=== PATIENT | female | born 1970 | race Two or more races ===

== ENCOUNTER 2020-01-16 09:28 | Outpatient (REF) | payer OTHER, SELFPAY | END 2020-01-16 09:29 | disposition home or self-care (01) | LOC: HO.LAB 09:28 | PROVIDERS: PCP Internal Medicine; Visit Provider Internal Medicine | DX: Z20.828 Contact with and (suspected) exposure to other viral communicable diseases (principal) | CPT/HCPCS: 36415; 87635 ==

== ENCOUNTER 2020-01-26 12:53 | Outpatient (REF) | payer OTHER, SELFPAY | END 2020-01-26 12:54 | disposition home or self-care (01) | LOC: HO.LAB 12:53 | PROVIDERS: PCP Internal Medicine; Visit Provider Internal Medicine | DX: Z20.828 Contact with and (suspected) exposure to other viral communicable diseases (principal) | CPT/HCPCS: 87635 ==

== ENCOUNTER → 2020-02-29 08:34 | Outpatient (BNVA) | payer OTHER, SELFPAY | PROVIDERS: PCP Internal Medicine; Referring Provider Internal Medicine; Visit Provider Physician Assistant | DX: Z76.89 Persons encountering health services in other specified circumstances (principal) ==

== ENCOUNTER 2020-03-07 12:31 | Outpatient (REF) | payer OTHER, SELFPAY ==
[2020-03-07 13:37] LABS: MANUAL DIFF FLAG NO
[2020-03-07 13:48] LABS: Eosinophils Absolute Auto 0.1 X10*3/uL (0.0-0.4); Eosinophils Percent Auto 2.3 % (0-4); Hematocrit 45.1 % (37-47); Hemoglobin 14.8 g/dl (12.0-16.0); Imm Gran Abs Auto 0.01 X10*3/uL (0.00-0.03); Imm Gran Pct Auto 0.3 % (0.0-0.4); Lymphocytes Absolute Auto 1.5 X10*3/uL (1.2-4.9); Lymphocytes Percent Auto 38.3 % (20-40); Mean Corpuscular HGB Conc 32.8 g/dl (31.0-35.0); Mean Corpuscular Hemoglobin 30.3 pg (27.0-33.0); Mean Corpuscular Volume 92.4 fL (80-98); Mean Platelet Volume 10.1 fL (9.4-12.3); Monocytes Absolute Auto 0.3 X10*3/uL (0.1-1.2); Monocytes Percent Auto 6.8 % (2-11); Neutrophils Absolute Auto 2.1 X10*3/uL (2.0-8.3); Neutrophils Percent Auto 51.3 % (45-73); Platelet Count 275 X10*3/uL (160-400); Red Blood Count 4.88 X10*6/uL (4.20-5.50); Red Cell Distribution Width 12.5 % (11.0-16.0)
[2020-03-07 14:44] LABS: Thyroid Stimulating Hormone 0.47 uIU/mL (0.32-4.0)
== END 2020-03-07 12:32 | disposition home or self-care (01) ==
LOC: HO.LAB 12:31
PROVIDERS: PCP Internal Medicine; Visit Provider Physician Assistant
DX: K59.09 Other constipation (principal)
CPT/HCPCS: 36415; 84443; 85025

== ENCOUNTER 2020-03-15 13:46 | Outpatient (REF) | payer OTHER, SELFPAY ==
--- NOTE | 2020-03-15 14:03 | XR_ITS ---
EXAMINATION: XR FOOT, RIGHT CLINICAL INFORMATION: Foot pain and heel spur. COMPARISON: None TECHNIQUE: AP, lateral, and oblique views of the right foot. FINDINGS: The bones and soft tissues are normal. No fracture. Alignment is anatomic. Joint spaces are maintained. XR/XR foot RT 2V IMPRESSION: Unremarkable right foot exam.
[2020-03-15 14:40] LABS: Glucose Urine UA NEG (NEG); Leukocyte Esterase Urine NEG (NEG); Nitrite Urine NEG (NEG); PH 6.5 (5.0-8.0); Specific Gravity - Urine 1.015 (1.005-1.025); Urine Blood NEG (NEG); Urine Ketones NEG (NEG); Urine Protein NEG (NEG-TRACE)
[2020-03-15 14:42] LABS: Appearance Urine CLEAR; Color Urine YELLOW
[2020-03-15 15:06] LABS: Alanine Aminotransferase 13 U/L (0-31); Albumin Level 4.7 g/dL (3.5-5.0); Alkaline Phosphatase 71 U/L (39-117); Anion Gap 11 (12-20); Aspartate Amino Transferase 17 U/L (5-31); Bilirubin Total 0.5 mg/dL (0.0-1.0); Blood Urea Nitrogen 13 mg/dL (9-16); C Reactive Protein 0.05 mg/dL (< or = 0.50); Calcium 9.4 mg/dL (8.4-10.2); Carbon Dioxide 31 mmol/L (22-29); Chloride 102 mmol/L (96-108); Cholesterol 240 mg/dL; Estimated Glomerular Filt Rate > 60; Glucose Fasting 91 mg/dL (60-99); HDL Cholesterol 53 mg/dL; LDL Cholesterol Calculated 174 mg/dl; Potassium 4.5 mmol/l (3.3-5.1); Sodium 139 mmol/L (135-145); Total Protein 7.5 g/dL (6.5-8.0); Triglycerides 67 mg/dL
[2020-03-15 15:27] LABS: Free T4 (Free Thyroxine) 0.92 ng/dL (0.71-1.85)
== END 2020-03-15 13:47 | disposition home or self-care (01) ==
LOC: HO.LAB 13:46
PROVIDERS: PCP Internal Medicine; Visit Provider Internal Medicine
DX: M79.671 Pain in right foot (principal); R63.5 Abnormal weight gain; R23.9 Unspecified skin changes; E78.00 Pure hypercholesterolemia, unspecified
CPT/HCPCS: 73620; 80053; 80061; 81003; 84439; 86140

== ENCOUNTER → 2020-03-21 08:34 | Outpatient (BNVA) | payer OTHER, SELFPAY | PROVIDERS: PCP Internal Medicine; Visit Provider Physician Assistant | DX: Z76.89 Persons encountering health services in other specified circumstances (principal) ==

== ENCOUNTER 2020-05-11 10:06 | Emergency (ER) | payer OTHER, SELFPAY ==
[2020-05-11 11:08] VITALS: BP 136/96; PULSE 73; RESP 20; TEMP 36.7; O2SAT 98; BMI 21.5
--- NOTE | 2020-05-11 11:09 | XR_ITS ---
EXAMINATION: XR CHEST CLINICAL INFORMATION: Cough COMPARISON: September 2019 TECHNIQUE: Frontal view of the chest was obtained. FINDINGS: No significant abnormality is noted involving the heart, lungs, mediastinum, bony thorax or soft tissues. XR/XR chest 1V IMPRESSION: Unremarkable examination.
--- NOTE | 2020-05-11 11:09 | ED.URI ---
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 elicited complaint: cough, sore throat, rhinorrhea and nasal congestion Pertinent past history: COPD Onset (ago): day(s) (4) Consistency: constant Severity: mild Description of mucous: clear Able to tolerate fluids by mouth: Yes Exacerbating factors: swallowing Relieving factors: nothing Context: sick contacts (COVID exposure) Associated symptoms: chills, myalgias, headache, nasal congestion, sore throat and cough Treatments prior to arrival: none Related Data Home Medications Medication Instructions Recorded Confirmed cholecalciferol (vitamin D3) 50 50 mcg PO DAILY 02/29/20 03/21/20 mcg (2,000 unit) capsule omeprazole 20 mg capsule,delayed 20 mg PO DAILY 02/29/20 03/21/20 release pyridoxine (vitamin B6) 50 mg 50 mg PO BID 03/21/20 03/21/20 capsule Previous Rx's Medication Instructions Recorded docusate sodium 100 mg capsule 200 mg PO BEDTIME #60 cap 02/29/20 methylcellulose (laxative) 500 mg 500 mg PO BID #60 tab 02/29/20 tablet polyethylene glycol 3350 17 17 g PO DAILY #510 g 02/29/20 gram/dose oral powder hydrocodone-homatropine 5 ml PO Q6H PRN #60 ml 05/11/20 prednisone 40 mg PO DAILY 4 Days #8 tab 05/11/20 Allergies Allergy/AdvReac Type Severity Reaction Status Date / Time atorvastatin Allergy Unknown bruises,weakness, Verified 05/11/20 11:15 headaches Review of Systems Review of Systems: Constitutional : No Fever, pos Chills ENT/Mouth : pos sore throat, pos Rhinorrhea, No Swallowing Difficulty Eyes: No Eye Pain, No Swelling, No Redness Cardiovascular : No Chest Pain, positive SOB, No Orthopnea, positive Edema Respiratory : pos Cough, No Sputum, No Wheezing, positive dyspnea Gastrointestinal : No Nausea, No Vomiting, No Diarrhea, No abdominal Pain, No Hematochezia, No Melena Genitourinary : No Dysuria, No Urinary Frequency, No Hematuria Musculoskeletal : No joint pain, pos Myalgias Skin : No Skin Lesions, No rash Neuro : No Weakness, No Numbness, No Dizziness, pos Headache All other systems reviewed and are negative [facility] Past Medical History Attestation statement: The following information was validated with the patient. Medical History Asthma Chronic constipation COPD (chronic obstructive pulmonary disease) Hiatal hernia Mitral valve prolapse Surgical History History of appendectomy History of colonoscopy History of hysterectomy Hx of endoscopy Hx of tonsillectomy Family History Family History (Updated 02/29/20 @ 09:10 by Adela Garcia PA-C) Father No problems noted. Mother Family history of diabetes mellitus History of cancer Multiple myeloma Social History Social History Alcohol intake: never Smoking Status: Former smoker Advance Directives: No Advance Directives Information Provided: No Physical Exam Vital Signs: Vital Signs: Last Vital Signs Temp 98.1 F 05/11/20 11:08 Pulse 73 05/11/20 11:43 Resp 20 05/11/20 11:08 BP 136/96 H 05/11/20 11:08 Pulse Ox 98 05/11/20 11:08 Body Mass Index 21.5 Appearance: Alert. Oriented X3. No acute distress. Eyes: Pupils equal, round and reactive to light. ENT: Pharynx normal. Neck: Normal inspection. Neck supple. CVS: Normal heart rate and rhythm. Pulses normal. Respiratory: No respiratory distress. Breath sounds decreased, faint end exp wheezes Abdomen: Soft and nontender. Skin: Skin warm and dry. Normal skin color. Normal skin turgor. Extremities: No lower extremity edema. No calf ttp Neuro: Oriented X 3. No motor deficit. No sensory deficit. Course Course Course Narrative: patient feels better, stable for DC, CXR negative COVID negative MDM - URI/Sore Throat MDM Narrative Medical decision making narrative: 50 yo female with COPD here with 4 days of URI symptoms and her chest feels tight like COPD - had COVID exposure, pain is not severe or pleuritic, no hypoxia - doubt ACS/PE suspect viral illness triggering mild COPD - neb ordered, PO prednisone, CXR and COVID swab dispo per results and improvement Lab Data Labs: Lab Results 05/11/20 Range/Units 11:35 Coronavirus (PCR) NEGATIVE (Negative) Influenza Type A (PCR) NEGATIVE (Negative) Influenza Type B (PCR) NEGATIVE (Negative) RSV RNA Qual (PCR) NEGATIVE (Negative) Discharge Plan Discharge Clinical Impression: Viral infection Patient Disposition: Home, Self-Care Instructions: Viral Syndrome (ED) Additional Instructions: return to ED for any worsening symptoms or concerns your chest xray and COVID swab were negative but your symptoms are concerning, will start on prednisone and put you out of work for 1 week, return for any change in your symptoms or concerns Prescriptions: New prednisone 20 mg tablet 40 mg PO DAILY 4 Days Qty: 8 RF: 0 hydrocodone-homatropine 5-1.5 mg/5 mL (5 mL) syrup 5 ml PO Q6H PRN (Reason: cough) Qty: 60 RF: 0 No Action cholecalciferol (vitamin D3) 50 mcg (2,000 unit) capsule 50 mcg PO DAILY RF: 0 omeprazole 20 mg capsule,delayed release(DR/EC) 20 mg PO DAILY RF: 0 docusate sodium [Colace] 100 mg capsule 200 mg PO BEDTIME Qty: 60 RF: 5 polyethylene glycol 3350 [Miralax] 17 gram/dose powder 17 g PO DAILY Qty: 510 RF: 0 Citrucel 500 mg tablet 500 mg PO BID Qty: 60 RF: 5 pyridoxine (vitamin B6) 50 mg capsule 50 mg PO BID RF: 0 Referrals: Raj Bethea MD [Primary Care Provider] - 3 days (if not better) Stand Alone Forms: Work/School Release
[2020-05-11] MEDS: predniSONE 20 MG TABLET 60 MG PO (11:28)
[2020-05-11] MEDS: Albuterol Sulfate (0.083%) 2.5 MG/3 ML VIAL.NEB 5 MG INHALE (11:38)
[2020-05-11 11:43] VITALS: PULSE 73; O2SAT 98
[2020-05-11 12:17] LABS: Influenza A PCR NEGATIVE (Negative); Influenza B PCR NEGATIVE (Negative); Resp Syncy Virus RNA Qual PCR NEGATIVE (Negative); SARS COV2 PCR INHOUSE NEGATIVE (Negative)
== END 2020-05-11 13:28 | disposition home or self-care (01) ==
PROVIDERS: Emergency Provider Emergency Medicine; PCP Internal Medicine
DX: B34.9 Viral infection, unspecified (principal); R05 Cough; M79.10 Myalgia, unspecified site; Z87.891 Personal history of nicotine dependence; Z20.822 Contact with and (suspected) exposure to COVID-19
CPT/HCPCS: 0241U; 36415; 71045; 94640; 99283

== ENCOUNTER 2020-05-21 13:57 | Outpatient (REF) | payer OTHER, SELFPAY | END 2020-05-21 13:58 | disposition home or self-care (01) | LOC: HO.LAB 13:57 | PROVIDERS: Visit Provider Internal Medicine | DX: Z20.822 Contact with and (suspected) exposure to COVID-19 (principal) | CPT/HCPCS: 36415; C9803; U0003; U0005 ==

== ENCOUNTER → 2020-06-20 10:08 | Outpatient (BNVA) | payer OTHER, SELFPAY | PROVIDERS: Visit Provider Physician Assistant ==

== ENCOUNTER → 2020-06-29 08:44 | Outpatient (BNVA) | payer OTHER, SELFPAY | PROVIDERS: PCP Internal Medicine; Visit Provider Internal Medicine Pulmonary Disease | DX: J45.40 Moderate persistent asthma, uncomplicated (principal); J34.2 Deviated nasal septum; Z87.891 Personal history of nicotine dependence | CPT/HCPCS: 99212 ==

== ENCOUNTER 2020-07-02 09:42 | Outpatient (REF) | payer OTHER, SELFPAY ==
--- NOTE | ~2020-07-02 | MM_ITS ---
EXAMINATION: MM SCREENING DIGITAL BREAST TOMOSYNTHESIS, BILATERAL CLINICAL INFORMATION: Screening. Asymptomatic. The lifetime risk of breast cancer based on the Tyrer-Cuzick Model is 9%. COMPARISON: Mammography: 06/27/2019, 06/11/2018, 04/28/2017 TECHNIQUE: Digital breast tomosynthesis is performed in both the craniocaudal and mediolateral oblique views along with computer-aided detection (CAD). Synthesized 2D images are generated from the tomosynthesis. FINDINGS: There are scattered areas of fibroglandular density (ACR BI-RADS breast composition Category b). Breast tissue composition borders on heterogeneously dense, decreased in density since 2018. There are no significant masses, abnormal calcifications, or other abnormalities. The axilla and skin contours are unremarkable. MM/MM tomosynthesis screening BI IMPRESSION: No mammographic evidence of malignancy. ASSESSMENT: BI-RADS 1: Negative RECOMMENDATION: Routine annual mammography screening. This patient's information was entered into a reminder system with a target due date for their next mammogram.
== END 2020-07-02 09:43 | disposition home or self-care (01) ==
LOC: HO.MAMMO 09:42
PROVIDERS: Visit Provider Internal Medicine
DX: Z12.31 Encounter for screening mammogram for malignant neoplasm of breast (principal)
CPT/HCPCS: 77063; 77067

== ENCOUNTER 2020-07-09 14:17 | Outpatient (REF) | payer OTHER, SELFPAY | END 2020-07-09 14:18 | disposition home or self-care (01) | LOC: HO.LAB 14:17 | PROVIDERS: Visit Provider Internal Medicine | DX: Z20.822 Contact with and (suspected) exposure to COVID-19 (principal) | CPT/HCPCS: 36415; C9803; U0003; U0005 ==

== ENCOUNTER 2020-07-12 09:33 | Outpatient (REF) | payer OTHER, SELFPAY ==
[2020-07-12 11:25] LABS: Cholesterol 263 mg/dL; HDL Cholesterol 54 mg/dL; LDL Cholesterol Calculated 191 mg/dl; Triglycerides 92 mg/dL
== END 2020-07-12 09:34 | disposition home or self-care (01) ==
LOC: HO.LAB 09:33
PROVIDERS: PCP Internal Medicine; Visit Provider Internal Medicine
DX: E78.00 Pure hypercholesterolemia, unspecified (principal)
CPT/HCPCS: 36415; 80061

== ENCOUNTER 2020-08-12 09:27 | Emergency (ER) | payer OTHER, SELFPAY ==
--- NOTE | ~2020-08-12 | XR_ITS ---
EXAMINATION: XR HAND, LEFT CLINICAL INFORMATION: Injury COMPARISON: None TECHNIQUE: PA, lateral, and oblique views of the left hand. FINDINGS: The bones and soft tissues are normal. No fracture. Alignment is anatomic. Joint spaces are maintained. No erosions or soft tissue calcifications. XR/XR hand LT 2V IMPRESSION: Normal left hand.
[2020-08-12 09:44] VITALS: BP 110/82; PULSE 80; RESP 18; TEMP 37; O2SAT 96; BMI 23.8
--- NOTE | 2020-08-12 11:41 | ED_ITS ---
HPI - Fall General Chief Complaint: Fall Stated Complaint: fall - hand pain Time Seen by Provider: 08/12/20 10:09 History of Present Illness HPI Narrative: Patient complains of pain in the left hand left 3rd 4th and 5th fingers after she tripped and fell forward on the outstretched hand and bent the fingers back but did not bend or injure her wrist, no other injury no numbness weakness or tingling Related Data Home Medications Medication Instructions Recorded Confirmed cholecalciferol (vitamin D3) 50 50 mcg PO DAILY 02/29/20 06/20/20 mcg (2,000 unit) capsule omeprazole 20 mg capsule,delayed 20 mg PO DAILY 02/29/20 06/20/20 release pyridoxine (vitamin B6) 50 mg 50 mg PO BID 03/21/20 06/20/20 capsule albuterol sulfate 90 mcg/actuation 1 inh INHALATION ONCE PRN g 06/20/20 06/20/20 aerosol inhaler Previous Rx's Medication Instructions Recorded docusate sodium 100 mg capsule 200 mg PO BEDTIME #60 cap 02/29/20 methylcellulose (laxative) 500 mg 500 mg PO BID #60 tab 02/29/20 tablet polyethylene glycol 3350 17 17 g PO DAILY #510 g 02/29/20 gram/dose oral powder hydrocodone-homatropine 5 ml PO Q6H PRN #60 ml 05/11/20 prednisone 40 mg PO DAILY 4 Days #8 tab 05/11/20 sennosides 8.6 mg tablet 8.6 mg PO DAILY #30 tab 06/20/20 umeclidinium 62.5 mcg/actuation 1 inh INHALATION DAILY 30 Days #1 06/29/20 blister powder for inhalation ea ibuprofen 600 mg PO Q6H PRN #20 tab 08/12/20 Allergies Allergy/AdvReac Type Severity Reaction Status Date / Time No Known Allergies Allergy Verified 06/29/20 08:49 Review of Systems Review of Systems: Positive for left 3rd 4th and 5th finger pain after fall Negatives are no headache no head injury no neck pain no back pain no numbness weakness or tingling Yes all other systems are reviewed and are negative PMF Past Medical History Source: nursing notes reviewed Medical History Asthma Chronic constipation COPD (chronic obstructive pulmonary disease) Hiatal hernia Mitral valve prolapse Surgical History History of appendectomy History of colonoscopy History of hysterectomy Hx of endoscopy Hx of tonsillectomy Family History Family History (Updated 06/20/20 @ 10:13 by Sally Neff CMA) Father No problems noted. 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 Physical Exam Vital Signs: Vital Signs: Last Vital Signs Temp 98.6 F 08/12/20 09:44 Pulse 80 08/12/20 09:44 Resp 18 08/12/20 09:44 BP 110/82 08/12/20 09:44 Pulse Ox 96 08/12/20 09:44 Body Mass Index 23.8 General appearance no distress Head is normocephalic atraumatic Neck is supple nontender Respiratory no distress Extremities the left hand had tenderness and mild swelling in the left ring finger some mild tenderness in the left 3rd and left 5th fingers, the patient could flex the fingers but it was uncomfortable and could extend them fully, neurovascular intact distal, wrist was nontender and had full range of motion without pain Skin no rashes no lacerations Neuro no focal motor or sensory deficits Course Course Course Narrative: Left hand and finger x-ray was negative, patient was given a finger splint for the left 4th finger and will follow with hand doctor if needed Discharge Plan Discharge Clinical Impression: Finger sprain Qualifiers: Encounter type: initial encounter Patient Disposition: Home, Self-Care Additional Instructions: X-ray was normal You most likely sprained the pinky ring finger and middle finger This usually is self-limited and gets better on its own after 1-2 weeks If needed follow with hand doctor Return any concerns Prescriptions: New ibuprofen 600 mg tablet 600 mg PO Q6H PRN (Reason: pain) Qty: 20 RF: 0 No Action prednisone 20 mg tablet 40 mg PO DAILY 4 Days Qty: 8 RF: 0 hydrocodone-homatropine 5-1.5 mg/5 mL (5 mL) syrup 5 ml PO Q6H PRN (Reason: cough) Qty: 60 RF: 0 albuterol sulfate 90 mcg/actuation HFA aerosol inhaler 1 inh inhalation ONCE PRN (Reason: shortness of breath or wheezing) RF: 0 sennosides [Senna Laxative] 8.6 mg tablet 8.6 mg PO DAILY Qty: 30 RF: 3 Incruse Ellipta 62.5 mcg/actuation blister with device 1 inh inhalation DAILY 30 Days Qty: 1 RF: 6 cholecalciferol (vitamin D3) 50 mcg (2,000 unit) capsule 50 mcg PO DAILY RF: 0 omeprazole 20 mg capsule,delayed release(DR/EC) 20 mg PO DAILY RF: 0 docusate sodium [Colace] 100 mg capsule 200 mg PO BEDTIME Qty: 60 RF: 5 polyethylene glycol 3350 [Miralax] 17 gram/dose powder 17 g PO DAILY Qty: 510 RF: 0 Citrucel 500 mg tablet 500 mg PO BID Qty: 60 RF: 5 pyridoxine (vitamin B6) 50 mg capsule 50 mg PO BID RF: 0 Referrals: Brayden Hutchinson MD [Physician] - 2 days (Left 3 4 in 5 finger sprains) Stand Alone Forms: Work/School Release
== END 2020-08-12 11:51 | disposition home or self-care (01) ==
PROVIDERS: Emergency Provider Emergency Medicine; PCP Internal Medicine
DX: S63.615A Unspecified sprain of left ring finger, initial encounter (principal); S63.613A Unspecified sprain of left middle finger, initial encounter; S63.617A Unspecified sprain of left little finger, initial encounter; W01.0XXA Fall on same level from slipping, tripping and stumbling without subsequent striking against object, initial encounter; Y93.9 Activity, unspecified; Y92.9 Unspecified place or not applicable; Y99.9 Unspecified external cause status
CPT/HCPCS: 29130; 73120; 99283

== ENCOUNTER 2020-08-15 08:15 | Outpatient (REF) | payer OTHER, SELFPAY ==
--- NOTE | ~2020-08-15 | XR_ITS ---
EXAMINATION: XR HAND, LEFT XR WRIST, LEFT CLINICAL INFORMATION: Pain. COMPARISON: 3 views left hand and 2 views left wrist, TECHNIQUE: PA, lateral, and oblique views of the left hand. FINDINGS: LEFT HAND: The PIP, DIP and MCP joints are maintained normal. No bony erosive changes, fracture or dislocation. The soft tissues are normal. LEFT WRIST: The intercarpal and radiocarpal and carpometacarpal joint space is maintained normal. No bony erosive changes or fracture seen. There are no loose bodies. The soft tissues are normal. XR/XR hand LT min 3V IMPRESSION: Unremarkable left hand and left wrist exam.
--- NOTE | ~2020-08-15 | XR_ITS ---
EXAMINATION: XR HAND, LEFT XR WRIST, LEFT CLINICAL INFORMATION: Pain. COMPARISON: 3 views left hand and 2 views left wrist, TECHNIQUE: PA, lateral, and oblique views of the left hand. FINDINGS: LEFT HAND: The PIP, DIP and MCP joints are maintained normal. No bony erosive changes, fracture or dislocation. The soft tissues are normal. LEFT WRIST: The intercarpal and radiocarpal and carpometacarpal joint space is maintained normal. No bony erosive changes or fracture seen. There are no loose bodies. The soft tissues are normal. XR/XR hand LT min 3V IMPRESSION: Unremarkable left hand and left wrist exam.
== END 2020-08-15 08:16 | disposition home or self-care (01) ==
LOC: HO.HOSX 08:15
PROVIDERS: PCP Internal Medicine; Visit Provider Orthopaedic Surgery
DX: S63.613A Unspecified sprain of left middle finger, initial encounter (principal); S63.615A Unspecified sprain of left ring finger, initial encounter; S63.617A Unspecified sprain of left little finger, initial encounter; W01.0XXA Fall on same level from slipping, tripping and stumbling without subsequent striking against object, initial encounter; Y93.9 Activity, unspecified; Y92.9 Unspecified place or not applicable; Y99.9 Unspecified external cause status; Z87.891 Personal history of nicotine dependence
CPT/HCPCS: 73130; 99202

== ENCOUNTER → 2020-08-20 10:23 | Outpatient (BNVA) | payer OTHER, SELFPAY | PROVIDERS: PCP Internal Medicine; Visit Provider Physician Assistant | DX: K59.09 Other constipation (principal); Z79.899 Other long term (current) drug therapy | CPT/HCPCS: 99212 ==

== ENCOUNTER → 2020-09-26 09:26 | Outpatient (BNVA) | payer OTHER, SELFPAY | PROVIDERS: PCP Internal Medicine; Visit Provider Dietitian, Registered | DX: E78.00 Pure hypercholesterolemia, unspecified (principal); K59.09 Other constipation | CPT/HCPCS: 97802 ==

== ENCOUNTER 2020-10-09 15:08 | Outpatient (REF) | payer OTHER, SELFPAY ==
--- NOTE | ~2020-10-09 | US_ITS ---
EXAMINATION: US RETROPERITONEAL LIMITED (RENAL ONLY) CLINICAL INFORMATION: Renal calculus. COMPARISON: Ultrasound renal ultrasound 08/15/2019 and 01/17/2019. CT abdomen pelvis 04/30/2017. TECHNIQUE: Real-time imaging of the kidneys. FINDINGS: RIGHT KIDNEY: 11.3 x 3.5 x 5.2 cm (SAG x AP x TRV). The kidney is normal in size, contour, and echogenicity. Renal cortical thickness is normal. No calculi or focal parenchymal lesions. No hydronephrosis. LEFT KIDNEY: 10.3 x 4.4 x 4.6 cm (SAG x AP x TRV). The kidney is normal in size, contour, and echogenicity. Renal cortical thickness is normal. There are 2 small 2 mm stones in the lower pole. No focal parenchymal lesions or hydronephrosis. US/US renal BI IMPRESSION: Small left renal stones.
== END 2020-10-09 15:09 | disposition home or self-care (01) ==
LOC: HO.US 15:08
PROVIDERS: Visit Provider Urology
DX: N20.0 Calculus of kidney (principal)
CPT/HCPCS: 76775

== ENCOUNTER 2020-11-27 08:43 | Outpatient (REF) | payer OTHER, SELFPAY | END 2020-11-27 08:44 | disposition home or self-care (01) | LOC: HO.LAB 08:43 | PROVIDERS: PCP Internal Medicine; Visit Provider Internal Medicine | DX: Z20.822 Contact with and (suspected) exposure to COVID-19 (principal) | CPT/HCPCS: C9803; U0003; U0005 ==

== ENCOUNTER 2020-12-18 07:56 | Outpatient (REF) | payer OTHER, SELFPAY | END 2020-12-18 07:57 | disposition home or self-care (01) | LOC: HO.LAB 07:56 | PROVIDERS: PCP Internal Medicine; Visit Provider Internal Medicine | DX: Z20.822 Contact with and (suspected) exposure to COVID-19 (principal) | CPT/HCPCS: C9803; U0003; U0005 ==

== ENCOUNTER → 2020-12-20 15:09 | Outpatient (BNVA) | payer OTHER, SELFPAY | PROVIDERS: Visit Provider Urology ==

== ENCOUNTER 2021-01-11 11:15 | Outpatient (REF) | payer OTHER, SELFPAY | END 2021-01-11 11:16 | disposition home or self-care (01) | LOC: HO.LAB 11:15 | PROVIDERS: PCP Internal Medicine; Visit Provider Internal Medicine | DX: Z20.822 Contact with and (suspected) exposure to COVID-19 (principal) | CPT/HCPCS: C9803; U0003; U0005 ==

== ENCOUNTER 2021-03-08 13:24 | Emergency (ER) | payer OTHER, SELFPAY ==
[2021-03-08 14:43] VITALS: BP 118/81; PULSE 70; RESP 18; TEMP 37.1; O2SAT 99; BMI 22.9
--- NOTE | 2021-03-08 17:04 | ED.HA ---
HPI - Headache General Chief Complaint: Headache Stated Complaint: headache Time Seen by Provider: 03/08/21 16:32 Source: patient and spanish medical interpreter Mode of arrival: ambulatory Limitations: language barrier History of Present Illness HPI Narrative: 50-year-old female here with 5 days of frontal sinus pain, pressure, nasal congestion with yellow color. No fevers, chills, sore throat. She has had a slight cough. No shortness of breath or chest pain Related Data Home Medications Medication Instructions Recorded Confirmed cholecalciferol (vitamin D3) 50 50 mcg PO DAILY 02/29/20 08/20/20 mcg (2,000 unit) capsule pyridoxine (vitamin B6) 50 mg 50 mg PO BID 03/21/20 08/20/20 capsule albuterol sulfate 90 mcg/actuation 1 inh INHALATION ONCE PRN g 06/20/20 08/20/20 aerosol inhaler ergocalciferol (vitamin D2) 1,250 PO 12/20/20 mcg (50,000 unit) capsule (Vitamin D2) Previous Rx's Medication Instructions Recorded docusate sodium 100 mg capsule 200 mg PO BEDTIME #60 cap 02/29/20 (Colace) methylcellulose (laxative) 500 mg 500 mg PO BID #60 tab 02/29/20 tablet (Citrucel) hydrocodone-homatropine 5 mg-1.5 5 ml PO Q6H PRN #60 ml 05/11/20 mg/5 mL (5 mL) oral syrup prednisone 20 mg tablet 40 mg PO DAILY 4 Days #8 tab 05/11/20 umeclidinium 62.5 mcg/actuation 1 inh INHALATION DAILY 30 Days #1 06/29/20 blister powder for inhalation ea (Incruse Ellipta) ibuprofen 600 mg tablet 600 mg PO Q6H PRN #20 tab 08/12/20 polyethylene glycol 3350 17 17 g PO DAILY #510 g 08/20/20 gram/dose oral powder (Miralax) pyridoxine (vitamin B6) 100 mg 100 mg PO DAILY 90 Days #90 tab 12/20/20 tablet omeprazole 20 mg capsule,delayed 20 mg PO DAILY 30 Days #30 cap 01/31/21 release sennosides 8.6 mg tablet (senna) 8.6 mg PO DAILY #30 tab 01/31/21 amoxicillin 875 mg-potassium 1 tab PO BID #14 tab 03/08/21 clavulanate 125 mg tablet (Augmentin) prednisone 20 mg tablet 40 mg PO DAILY #10 tab 03/08/21 Allergies Allergy/AdvReac Type Severity Reaction Status Date / Time No Known Allergies Allergy Verified 03/08/21 14:42 Review of Systems Review of Systems: Yes all other systems are reviewed and are negative Constitutional: Constitutional: Reports no additional constitutional complaints, Denies body ache(s), Denies chills, Denies fever(s), Reports headache(s) and Denies weakness Eyes: Eyes: Reports no additional eye complaints and Denies change in vision ENT: Reports system reviewed and no additional complaints, except as documented, Denies dizziness, Reports headache(s), Reports nasal congestion, Denies nasal discharge, Denies neck pain, Reports sinus pain and Reports sinus pressure Cardiovascular: Cardiovascular: Reports no additional cardiovascular complaints, Denies chest pain, Denies leg edema and Denies dyspnea Respiratory: Respiratory: Reports no additional respiratory complaints, Denies cough and Denies dyspnea Gastrointestinal: Gastrointestinal: Reports no additional gastrointestinal complaints, Denies abdominal pain, Denies diarrhea, Denies nausea and Denies vomiting Genitourinary: Genitourinary: Reports no additional female genitourinary complaints and Denies urinary incontinence Musculoskeletal: Musculoskeletal: Reports no additional musculoskeletal complaints, Denies back pain, Denies arthralgias, Denies joint swelling, Denies neck pain, Denies numbness and Denies tingling Integumentary/Breasts: Skin/Breast: Reports system reviewed and no additional complaints, except as docu and Denies rash Neurologic: Reports system reviewed and no additional complaints, except as documented, Denies Abnormal speech present, Denies dizziness, Reports headache(s), Denies numbness, Denies tingling and Denies weakness [facility] Past Medical History Attestation statement: The following information was validated with the patient. Source: old records reviewed and nursing notes reviewed Medical History Asthma Chronic constipation COPD (chronic obstructive pulmonary disease) Hiatal hernia High cholesterol Mitral valve prolapse Surgical History History of appendectomy History of colonoscopy History of hysterectomy Hx of endoscopy Hx of tonsillectomy Family History Family History Father No problems noted. 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 Physical Exam Vital Signs: Vital Signs: Last Vital Signs Temp 96.8 F 03/08/21 17:07 Pulse 75 03/08/21 17:07 Resp 16 03/08/21 17:07 BP 130/81 03/08/21 17:07 Pulse Ox 99 03/08/21 17:07 Body Mass Index 22.9 Const: General: cooperative, healthy appearing, comfortable and no acute distress Orientation/consciousness: patient oriented x3 Limitations: no limitations HENMT: Head: Yes normal to inspection Ears: hearing grossly normal bilaterally and TM's normal bilaterally General nose exam: Normal external nose present Face and sinus: Yes normal facial exam, Yes sinus tenderness and Yes other ( bilateral nasal turbinate erythema) Mouth: Normal oral and palatal mucosa present Throat: Yes posterior oropharynx normal Eyes: General: appearance normal, both eyes and all related structures Pupils: Equal, round and reactive pupils present Neck: Neck: Yes normal visual inspection, Yes full ROM, Yes no lymphadenopathy and Yes no meningeal signs Chest: Chest palpation & inspection: normal inspection of the chest Resp: Effort & Inspection: normal respiratory effort Auscultation: clear to auscultation bilaterally Cardio: Rate: regular rate Rhythm: regular rhythm Peripheral pulses: Peripheral pulses 2+ throughout GI: Inspection: Yes normal to inspection Palpation (GI): Soft to palpation and nontender Auscultation: normal bowel sounds Back/Spine/Pelvis: Thoracic/Lumbar Spine: thoracic and lumbar spine normal to inspection Skin: General skin exam: no rashes or lesions noted Neuro: General: patient oriented x3, no meningeal signs, no focal motor deficits and normal sensation to monofilament Cranial nerves: Yes Equal, round and reactive pupils present Cognition (Neuro): normal cognition Speech: No Abnormal speech present Gait exam (Neuro): Normal gait present Motor exam (neuro): 5/5 motor strength present throughout Extrem: General: Yes normal to inspection Course Course Course Narrative: 50-year-old female here with sinus pressure, sinus pain, frontal headache. Exam is consistent with sinusitis. Will treat with course of antibiotics and prednisone. Reviewed worrisome signs and symptoms of when to return to the emergency department. Comfortable with discharge home. MDM - Headache Differential Diagnosis Differential diagnosis: Likely migraine, tension headache and sinusitis Medical Records Attestation: I reviewed the patient's medical records. Lab Data Attestation: I reviewed the patient's lab results. Discharge Plan Discharge Clinical Impression: Sinusitis Patient Disposition: Home, Self-Care Instructions: Sinusitis (ED) Prescriptions: New amoxicillin-pot clavulanate [Augmentin] 875-125 mg tablet 1 tab PO BID Qty: 14 RF: 0 prednisone 20 mg tablet 40 mg PO DAILY Qty: 10 RF: 0 No Action omeprazole 20 mg capsule,delayed release(DR/EC) 20 mg PO DAILY 30 Days Qty: 30 RF: 0 sennosides [senna] 8.6 mg tablet 8.6 mg PO DAILY Qty: 30 RF: 0 ibuprofen 600 mg tablet 600 mg PO Q6H PRN (Reason: pain) Qty: 20 RF: 0 prednisone 20 mg tablet 40 mg PO DAILY 4 Days Qty: 8 RF: 0 hydrocodone-homatropine 5-1.5 mg/5 mL (5 mL) syrup 5 ml PO Q6H PRN (Reason: cough) Qty: 60 RF: 0 albuterol sulfate 90 mcg/actuation HFA aerosol inhaler 1 inh inhalation ONCE PRN (Reason: shortness of breath or wheezing) RF: 0 polyethylene glycol 3350 [Miralax] 17 gram/dose powder 17 g PO DAILY Qty: 510 RF: 6 pyridoxine (vitamin B6) 100 mg tablet 100 mg PO DAILY 90 Days Qty: 90 RF: 3 Incruse Ellipta 62.5 mcg/actuation blister with device 1 inh inhalation DAILY 30 Days Qty: 1 RF: 6 cholecalciferol (vitamin D3) 50 mcg (2,000 unit) capsule 50 mcg PO DAILY RF: 0 docusate sodium [Colace] 100 mg capsule 200 mg PO BEDTIME Qty: 60 RF: 5 Citrucel 500 mg tablet 500 mg PO BID Qty: 60 RF: 5 pyridoxine (vitamin B6) 50 mg capsule 50 mg PO BID RF: 0 Referrals: Raj Bethea MD [Primary Care Provider] - 2 days Stand Alone Forms: Work/School Release Print Language: Belarusian
[2021-03-08 17:07] VITALS: BP 130/81; PULSE 75; RESP 16; TEMP 36; O2SAT 99
--- NOTE | 2021-03-08 17:46 | PC.NURSE ---
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 PLAN IS FOR DC HOME WITH MEDICATIONS. PT AWARE AND AGREEABLE TO PLAN. STATES NO QUESTIONS. PT AWAKE, ALERT AND ORIENTED X 3. SKIN WARM AND DRY. RESP UNLABORED. DENIES N/V. NEUROS INTACT. REPORTS USING MEDICATION FOR HEADACHE WITH LITTLE TO NO EFFECT. AMBULATORY, GAIT STEADY
== END 2021-03-08 17:50 | disposition home or self-care (01) ==
PROVIDERS: Emergency Provider Internal Medicine; PCP Internal Medicine
DX: J32.9 Chronic sinusitis, unspecified (principal); R51.9 Headache, unspecified; J45.909 Unspecified asthma, uncomplicated; Z79.899 Other long term (current) drug therapy
CPT/HCPCS: 99283

== ENCOUNTER 2021-03-18 14:25 | Outpatient (REF) | payer OTHER, SELFPAY ==
--- NOTE | ~2021-03-18 | XR_ITS ---
EXAMINATION: XR WRIST, RIGHT CLINICAL INFORMATION: Right wrist pain COMPARISON: None TECHNIQUE: Four views of the right wrist. FINDINGS: No fracture or dislocation. The carpal rows are well aligned. Joint spaces are maintained. The soft tissues are unremarkable. XR/XR wrist RT min 3V IMPRESSION: Normal right wrist.
[2021-03-18 14:52] LABS: MANUAL DIFF FLAG NO
[2021-03-18 15:06] LABS: Basophils Absolute Auto 0.1 X10*3/uL (0.0-0.2); Basophils Percent Auto 0.7 % (0-2); Eosinophils Absolute Auto 0.2 X10*3/uL (0.0-0.4); Eosinophils Percent Auto 2.5 % (0-4); Hematocrit 42.5 % (37.0-47.0); Imm Gran Abs Auto 0.06 X10*3/uL (0.00-0.03); Imm Gran Pct Auto 0.8 % (0.0-0.4); Lymphocytes Absolute Auto 2.2 X10*3/uL (1.2-4.9); Lymphocytes Percent Auto 31.3 % (20-40); Mean Corpuscular HGB Conc 32.9 g/dl (31.0-35.0); Mean Corpuscular Hemoglobin 30.5 pg (27.0-33.0); Mean Corpuscular Volume 92.6 fL (80.0-98.0); Mean Platelet Volume 9.8 fL (9.4-12.3); Monocytes Absolute Auto 0.7 X10*3/uL (0.1-1.2); Monocytes Percent Auto 9.2 % (2-11); Neutrophils Percent Auto 55.5 % (45-73); Platelet Count 296 X10*3/uL (160-400); Red Blood Count 4.59 X10*6/uL (4.20-5.50); Red Cell Distribution Width 13.1 % (11.0-16.0); White Blood Count 7.2 X10*3/uL (4.8-10.8)
[2021-03-18 15:26] LABS: Alanine Aminotransferase 21 U/L (0-31); Albumin Level 4.3 g/dL (3.5-5.0); Alkaline Phosphatase 73 U/L (39-117); Anion Gap 10 (12-20); Aspartate Amino Transferase 14 U/L (5-31); Bilirubin Total 0.4 mg/dL (0.0-1.0); Blood Urea Nitrogen 21 mg/dL (9-16); Calcium 10.1 mg/dL (8.4-10.2); Carbon Dioxide 29 mmol/L (22-29); Chloride 107 mmol/L (96-108); Cholesterol 247 mg/dL; Estimated Glomerular Filt Rate 59; Glucose Fasting 96 mg/dL (60-99); HDL Cholesterol 44 mg/dL; LDL Cholesterol Calculated 151 mg/dl; Sodium 142 mmol/L (135-145); Total Protein 7.1 g/dL (6.5-8.0); Triglycerides 261 mg/dL
[2021-03-18 15:49] LABS: Thyroid Stimulating Hormone 0.65 uIU/mL (0.32-4.0); Vitamin D 25-OH Total 22.5 ng/mL (>30)
[2021-03-18 16:59] LABS: Appearance Urine CLEAR; Color Urine YELLOW; Glucose Urine UA NEG (NEG); Leukocyte Esterase Urine NEG (NEG); Nitrite Urine NEG (NEG); Specific Gravity - Urine 1.025 (1.005-1.025); Urine Blood NEG (NEG); Urine Ketones NEG (NEG); Urine Protein NEG (NEG-TRACE)
== END 2021-03-18 14:26 | disposition home or self-care (01) ==
LOC: HO.XRAY 14:25
PROVIDERS: PCP Internal Medicine; Visit Provider Internal Medicine
DX: E78.00 Pure hypercholesterolemia, unspecified (principal); E55.9 Vitamin D deficiency, unspecified; J45.909 Unspecified asthma, uncomplicated; N20.0 Calculus of kidney; R63.5 Abnormal weight gain; M25.531 Pain in right wrist
CPT/HCPCS: 36415; 73110; 80053; 80061; 81003; 82306; 84443; 85025

== ENCOUNTER → 2021-03-26 10:16 | Outpatient (BNVA) | payer OTHER, SELFPAY | PROVIDERS: PCP Internal Medicine; Visit Provider Internal Medicine Pulmonary Disease | DX: J45.40 Moderate persistent asthma, uncomplicated (principal); J34.2 Deviated nasal septum | CPT/HCPCS: 99212 ==

== ENCOUNTER 2021-04-10 11:13 | Outpatient (REF) | payer OTHER, SELFPAY ==
[2021-04-10 13:08] LABS: COVID-19 Test Negative (Negative)
== END 2021-04-10 11:14 | disposition home or self-care (01) ==
LOC: HO.LAB 11:13
PROVIDERS: Visit Provider Internal Medicine
DX: Z20.822 Contact with and (suspected) exposure to COVID-19 (principal)
CPT/HCPCS: 36415; 87635; C9803

== ENCOUNTER 2021-07-11 14:41 | Outpatient (REF) | payer OTHER, SELFPAY ==
--- NOTE | ~2021-07-11 | MM_ITS ---
EXAMINATION: MM SCREENING DIGITAL BREAST TOMOSYNTHESIS, BILATERAL CLINICAL INFORMATION: Screening. Asymptomatic. The lifetime risk of breast cancer based on the Tyrer-Cuzick Model is 12.0%. COMPARISON: Mammography: 07/02/2020 and studies dating back to 04/28/2017. TECHNIQUE: Digital breast tomosynthesis is performed in both the craniocaudal and mediolateral oblique views along with computer-aided detection (CAD). Synthesized 2D images are generated from the tomosynthesis. FINDINGS: The breasts are heterogeneously dense, which may obscure small masses (ACR BI-RADS breast composition Category c). There is a stable parenchymal pattern within the left breast. About the medial aspect of the right breast, there is a 7 x 4 mm irregularly marginated density for which spot compression film and possible ultrasound is recommended. I do not definitely see a corresponding lesion on mediolateral oblique image. On tomosynthesis view on craniocaudal projection, the density appears to be superiorly placed. MM/MM tomosynthesis screening BI IMPRESSION: Right breast density for further evaluation as described. ASSESSMENT: BI-RADS 0: Incomplete - Need Additional Imaging Evaluation RECOMMENDATION: 1. Additional views of the right breast 2. Targeted ultrasound if warranted after review of the additional views. 3. Radiology department staff will contact the patient for additional imaging. This patient's information was entered into a reminder system with a target due date for their next mammogram.
== END 2021-07-11 14:42 | disposition home or self-care (01) ==
LOC: HO.MAMMO 14:41
PROVIDERS: Visit Provider Internal Medicine
DX: Z12.31 Encounter for screening mammogram for malignant neoplasm of breast (principal)
CPT/HCPCS: 77063; 77067

== ENCOUNTER 2021-07-18 08:47 | Outpatient (REF) | payer OTHER, SELFPAY ==
--- NOTE | ~2021-07-18 | MM_ITS ---
EXAMINATION: MM DIAGNOSTIC DIGITAL BREAST TOMOSYNTHESIS, RIGHT US DIAGNOSTIC ULTRASOUND BREAST, RIGHT CLINICAL INFORMATION: Recall from screening for nodular asymmetric density anterior medial right breast on CC view. COMPARISON: Mammography: 07/11/2021, 07/02/2020, 06/27/2019, 06/11/2018, 04/28/2017 (new baseline). TECHNIQUE: Digital breast tomosynthesis is performed. 2D images are generated from the tomosynthesis. The following views are obtained: Spot right CC, rolled right CC x2. Ultrasound right breast is targeted to the medial breast 1:00 through 5:00 position using grayscale imaging and color Doppler without and with harmonics. FINDINGS: The breasts are heterogeneously dense, which may obscure small masses (ACR BI-RADS breast composition Category c). The additional views show an overall equal attenuation asymmetry approximately 0.4 x 0.7 cm in size residing 4 cm medial to the nipple. The internal tissue composition includes mixed isointense glandular attenuation and fatty attenuation. Review of prior exams suggest probable similar size finding on right CC view 2020 and overlying glandular tissue on right CC view 2018. There is no interval developing density or interval architectural changes. Ultrasound fails to reveal a cystic or solid mass or focal architectural abnormality. There is no hyperemia or skin thickening or focal duct ectasia. Results are discussed with the patient at time of visit. Finding for recall is probably benign given the suspicion of probable chronicity, mixture of fatty attenuation with glandular attenuation, and absent ultrasound correlate. Management options discussed. Patient agrees to short interval six-month follow-up diagnostic imaging. MM/MM tomosynthesis added views R IMPRESSION: -Asymmetric density anterior medial right breast, possibly chronic. -No ultrasound correlate. ASSESSMENT: BI-RADS 3: Probably Benign RECOMMENDATION: Diagnostic right mammography in 6 months. This patient's information was entered into a reminder system with a target due date for their next mammogram.
== END 2021-07-18 08:48 | disposition home or self-care (01) ==
LOC: HO.MAMMO 08:47
PROVIDERS: PCP Internal Medicine; Visit Provider Internal Medicine
DX: R92.2 Inconclusive mammogram (principal)
CPT/HCPCS: 76642; 77061; 77065

== ENCOUNTER 2021-07-25 11:31 | Outpatient (REF) | payer OTHER, SELFPAY ==
[2021-07-25 13:03] LABS: Cholesterol 267 mg/dL; HDL Cholesterol 52 mg/dL; LDL Cholesterol Calculated 201 mg/dl; Triglycerides 71 mg/dL
== END 2021-07-25 11:32 | disposition home or self-care (01) ==
LOC: HO.LAB 11:31
PROVIDERS: PCP Internal Medicine; Visit Provider Internal Medicine
DX: E78.00 Pure hypercholesterolemia, unspecified (principal)
CPT/HCPCS: 36415; 80061

== ENCOUNTER → 2021-08-12 11:08 | Outpatient (BNVA) | payer OTHER, SELFPAY | PROVIDERS: PCP Internal Medicine; Visit Provider Internal Medicine Pulmonary Disease | DX: J45.40 Moderate persistent asthma, uncomplicated (principal); J34.2 Deviated nasal septum | CPT/HCPCS: 99212 ==

== ENCOUNTER 2021-08-27 12:50 | Outpatient (REF) | payer OTHER, SELFPAY ==
[2021-08-27 13:34] LABS: COVID-19 Test Negative (Negative); IDNOW Serial# 16C4AD1C
== END 2021-08-27 12:51 | disposition home or self-care (01) ==
LOC: HO.LAB 12:50
PROVIDERS: Visit Provider Internal Medicine
DX: Z20.822 Contact with and (suspected) exposure to COVID-19 (principal)
CPT/HCPCS: 87635; C9803

== ENCOUNTER → 2021-09-05 15:35 | Outpatient (BNVA) | payer OTHER, SELFPAY | PROVIDERS: PCP Internal Medicine; Referring Provider Internal Medicine; Visit Provider Surgery | DX: R92.2 Inconclusive mammogram (principal); Z91.89 Other specified personal risk factors, not elsewhere classified; Z80.3 Family history of malignant neoplasm of breast | CPT/HCPCS: 99202 ==

== ENCOUNTER 2021-09-10 11:35 | Outpatient (REF) | payer OTHER, SELFPAY ==
[2021-09-10 12:08] LABS: COVID-19 Test Negative (Negative)
== END 2021-09-10 11:36 | disposition home or self-care (01) ==
LOC: HO.LAB 11:35
PROVIDERS: Visit Provider Internal Medicine
DX: Z20.822 Contact with and (suspected) exposure to COVID-19 (principal)
CPT/HCPCS: 87635; C9803

== ENCOUNTER 2021-09-23 10:55 | Emergency (ER) | payer OTHER, SELFPAY ==
--- NOTE | ~2021-09-23 | XR_ITS ---
EXAMINATION: XR CHEST CLINICAL INFORMATION: Shortness of breath, cough COMPARISON: Chest radiographs 05/11/2020, 10/25/2019 TECHNIQUE: Frontal view of the chest was obtained. FINDINGS: The lungs are clear and there is no airspace consolidation or groundglass opacity or effusion. There is no pneumothorax or pleural reaction. The heart size is normal. The vascularity is normal. The hilar and mediastinal contours and bony structures are similar to prior exams. No acute intrathoracic disease. XR/XR chest 1V IMPRESSION: Unremarkable examination.
[2021-09-23 11:00] VITALS: BP 136/94; PULSE 102; RESP 18; TEMP 36.4; O2SAT 96; BMI 25.2
[2021-09-23 11:50] LABS: Influenza A PCR NEGATIVE (Negative); Influenza B PCR NEGATIVE (Negative); Resp Syncy Virus RNA Qual PCR NEGATIVE (Negative); SARS COV2 PCR INHOUSE NEGATIVE (Negative)
--- NOTE | 2021-09-23 12:00 | ED_ITS ---
HPI - General Adult General Chief complaint: Upper Respiratory Symptoms Stated complaint: chest pain,runny nose&headache,exposed covid Time Seen by Provider: 09/23/21 11:57 Source: patient Mode of arrival: ambulatory Limitations: no limitations History of Present Illness HPI narrative: Patient is a 51 year old female presenting to the emergency department today with a cough and right ear pain . Patient states that she was just on vacation with her son and daughter in law who came back positive for COVID-19, influenza, and mycoplasma pneumonia. Patient states she has felt generally unwell with body aches, cough, and right sided ear pain. Patient denies any current dizziness, lightheadedness, abdominal pain, nausea, vomiting, fever, chills, blurry vision, double vision, loss of vision, chest pain, difficulty breathing, shortness of breath, back pain, night sweats, pain with urination, increased urinary frequency, increased urinary urgency, blood in her urine or stool, syncope or a near syncopal episode, recent trauma or falls, bowel incontinence, bladder incontinence, bowel retention, bladder retention, or any other complaints at this time. Patient states that she has a history of asthma. Onset (ago): week(s) (1) Severity: mild Severity scale (1-10): 3 Relieving factors: none Exacerbating factors: none Associated symptoms: cough Treatments prior to arrival: none Related Data Home Medications Medication Instructions Recorded Confirmed cholecalciferol (vitamin D3) 50 50 mcg PO DAILY 02/29/20 09/06/21 mcg (2,000 unit) capsule pyridoxine (vitamin B6) 50 mg 50 mg PO BID 03/21/20 09/06/21 capsule albuterol sulfate 90 mcg/actuation 1 inh inhalation ONCE PRN 06/20/20 09/06/21 aerosol inhaler shortness of breath or wheezing ergocalciferol (vitamin D2) 1,250 PO 12/20/20 09/06/21 mcg (50,000 unit) capsule (Vitamin D2) atorvastatin 20 mg tablet 20 mg PO DAILY 03/26/21 09/06/21 Previous Rx's Medication Instructions Recorded docusate sodium 100 mg capsule 200 mg PO BEDTIME #60 caps 02/29/20 (Colace) hydrocodone-homatropine 5 mg-1.5 5 ml PO Q6H PRN cough #60 mL 05/11/20 mg/5 mL (5 mL) oral syrup ibuprofen 600 mg tablet 600 mg PO Q6H PRN pain #20 tabs 08/12/20 polyethylene glycol 3350 17 17 g PO DAILY #510 grams 08/20/20 gram/dose oral powder (Miralax) doxycycline monohydrate 100 mg 100 mg PO BID 14 days #28 caps 03/26/21 capsule tiotropium bromide 2.5 2 puff inhalation DAILY 30 days #1 04/25/21 mcg/actuation mist for inhalation ea (Spiriva Respimat) omeprazole 20 mg capsule,delayed 20 mg PO DAILY 30 days #30 caps 04/30/21 release sennosides 8.6 mg tablet (senna) 8.6 mg PO DAILY #30 tabs 04/30/21 fluticasone propionate 220 1 puff PO BID #12 grams 05/10/21 mcg/actuation HFA aerosol inhaler (Flovent HFA) fluticasone propionate 50 1 spray intranasal BID #16 grams 05/10/21 mcg/actuation nasal spray,suspension methylcellulose (laxative) 500 mg 500 mg PO BID #60 tabs 08/29/21 tablet (Citrucel) azithromycin 250 mg tablet See Rx Instructions PO .COMPLEX #6 09/23/21 tabs prednisone 20 mg tablet 20 mg PO DAILY 12 days #26 tabs 09/23/21 Allergies Allergy/AdvReac Type Severity Reaction Status Date / Time No Known Allergies Allergy Verified 09/23/21 10:59 Review of Systems Constitutional: Constitutional: Reports no additional constitutional complaints, Denies chills, Denies fever(s) and Denies night sweats Eyes: Eyes: Reports no additional eye complaints, Denies blurry vision, Denies change in vision, Denies diplopia, Denies eye discharge, Denies loss of vision and Denies eye pain ENT: Denies dizziness Comments: right ear pain Cardiovascular: Cardiovascular: Reports no additional cardiovascular complaints, Denies chest pain, Denies lightheadedness, Denies Loss of Consciousness and Denies dyspnea Respiratory: Respiratory: Reports no additional respiratory complaints, Reports cough and Denies dyspnea Gastrointestinal: Gastrointestinal: Reports no additional gastrointestinal complaints, Denies abdominal pain, Denies melena, Denies hematochezia, Denies change in bowel habits and Denies change in stool character Genitourinary: Genitourinary: Denies hematuria, Denies urinary frequency, Denies dysuria, Denies urinary incontinence, Denies urinary hesitancy and Denies urinary urgency Musculoskeletal: Musculoskeletal: Reports no additional musculoskeletal compla ints, Reports myalgias, Denies numbness and Denies tingling Neurologic: Denies dizziness, Denies loss of vision, Denies numbness and Denies tingling Psychiatric: Psychiatric: Reports no additional psychiatric complaints Endocrine: Endocrine: Reports no additional endocrine complaints Hematologic/Lymphatic: Hematologic/Lymphatic: Reports no additional hematologic/lymphatic complaints Allergic/Immunologic: Allergic/Immunologic: Reports no additional allergic/immunologic complaints [facility] Past Medical History Attestation statement: The following information was validated with the patient. Source: old records reviewed Medical History Asthma Chronic constipation COPD (chronic obstructive pulmonary disease) Hiatal hernia High cholesterol Mitral valve prolapse Surgical History History of appendectomy History of colonoscopy History of hysterectomy Hx of endoscopy Hx of tonsillectomy Family History Family History Father No problems noted. Mother Family history of diabetes mellitus Multiple myeloma Sister Family history of diabetes mellitus Son Hypertension Maternal Grandmother Breast cancer Paternal Grandmother Breast cancer Social History Social History Household Members: None Alcohol intake: never Advance Directives: No Advance Directives Information Provided: No Current occupational status: employed Current occupation: [employer]IENT [employer] Physical Exam ED Vital Signs: Vital Signs - 24 hr 09/23/21 11:00 09/23/21 12:08 Temperature 97.5 F 98.2 F Pulse Rate 102 H 88 Respiratory Rate 18 18 Blood Pressure 136/94 H 128/78 Pulse Oximetry 96 97 Oxygen Delivery Method Room Air Room Air BMI result Body Mass Index 25.2 Const General: cooperative, no acute distress, alert and awake Nutritional Appearance: well nourished Orientation/consciousness: patient oriented x3 Limitations: no limitations HENMT Head: Yes normal to inspection and Yes atraumatic Ears: hearing grossly normal bilaterally and external ears normal General nose exam: Normal external nose present, no nasal discharge noted and no epistaxis Face and sinus: Yes normal facial exam, No abrasion and No laceration Mouth: Normal oral and palatal mucosa present, no drooling and no muffled voice Eyes General: appearance normal, both eyes and all related structures Periorbital: periorbital findings normal Eyelids: Yes eyelids normal Conjunctivae: conjunctivae normal Pupils: Equal, round and reactive pupils present EOM: EOMs intact bilaterally Neck Neck: Yes normal visual inspection, Yes full ROM and Yes no lymphadenopathy Chest Chest palpation & inspection: normal inspection of the chest Resp Effort & Inspection: normal respiratory effort and able to speak in complete sentences Auscultation: clear to auscultation bilaterally Cardio Rate: regular rate Rhythm: regular rhythm GI Inspection: Yes normal to inspection Neuro General: patient oriented x3 and moves all extremities Cranial nerves: Yes Equal, round and reactive pupils present Cognition (Neuro): normal cognition Motor exam (neuro): 5/5 motor strength present throughout Sensory Exam: Normal double simultaneous stimulation for sensation Coordination: [id number] test normal Extrem General: Yes normal to inspection, Yes full ROM and Yes capillary refill normal Psych Appearance: grossly normal Mental Status: mental status grossly normal Affect: normal affect Attitude: cooperative Thought process: Normal thought process present Thought content: Normal thought content present Insight: Good insight present (Psych) Medical Decision Making MDM Narrative Medical decision making narrative: Patient is a 51 year old female presenting to the emergency department today with a cough, body aches, and right ear pain. Patient's physical exam was unremarkable. Patient's rapid COVID-19 and influenza tests were negative. Patient's chest x-ray showed no acute process. I explained my physical exam findings as well as all test results to the patient. I answered all questions asked by the patient. Due to the patient's close contact with a mycoplasma pneumonia positive individual and her history of asthma, I will treat with prednisone and azithromycin. I stressed the importance of the patient taking her medication as prescribed. I stressed the importance of the patient following up with her primary care provider. I stressed the importance of the patient returning to the emergency department immediately if her symptoms were to worsen or if she were to develop any dizziness, shortness of breath, difficulty breathing, chest pain, blurry vision, loss of vision, nausea, vomiting, abdominal pain, fever, chills, back pain, or any other complaints. Patient verbalized agreement and understanding with this treatment plan and discharge. Differential Diagnosis Differential Diagnosis: COVID-19, influenza, penumonia Medical Records Medical records reviewed: Yes I reviewed the patient's medical records. Lab Data Lab results reviewed: Yes I reviewed the patient's lab results. Labs: Lab Results 09/23/21 Range/Units 11:06 Influenza Type A (PCR) NEGATIVE (Negative) Influenza Type B (PCR) NEGATIVE (Negative) RSV RNA Qual (PCR) NEGATIVE (Negative) SARS-CoV-2 RNA (RT-PCR) NEGATIVE (Negative) Imaging Data Chest x-ray: Attestation: I personally reviewed and interpreted this imaging study as follows: My impression: No acute process. Radiologist's impression: EXAMINATION: XR CHEST CLINICAL INFORMATION: Shortness of breath, cough COMPARISON: Chest radiographs 05/11/2020, 10/25/2019 TECHNIQUE: Frontal view of the chest was obtained. FINDINGS: The lungs are clear and there is no airspace consolidation or groundglass opacity or effusion. There is no pneumothorax or pleural reaction. The heart size is normal. The vascularity is normal. The hilar and mediastinal contours and bony structures are similar to prior exams. No acute intrathoracic disease. XR/XR chest 1V IMPRESSION: Unremarkable examination. Dictated By: Aubrey Laws MD Signed By: Electronically signed by Aubrey Laws MD 09/23/21 1229 Discharge Plan Discharge Clinical Impression: Walking pneumonia Patient Disposition: Home, Self-Care Instructions: Pneumonia (ED) Additional Instructions: Follow up with your primary care provider. Return to the emergency department immediately if your symptoms worsen or if you develop any dizziness, shortness of breath, difficulty breathing, chest pain, blurry vision, loss of vision, nausea, vomiting, abdominal pain, fever, chills, back pain, or any other complaints. Prescriptions: New azithromycin 250 mg tablet See Rx Instructions .ROUTE .COMPLEX Qty: 6 0RF Rx Instructions: For 250 mg dose pack: take 500 mg today (day 1), then 250 mg for 4 days (days 2-5) prednisone 20 mg tablet 20 mg PO DAILY 12 Days Qty: 26 0RF Rx Instructions: Take 3 tablets for 5 days THEN; Take 2 tablets for 4 days THEN; Take 1 tablet for 3 days No Action Spiriva Respimat 2.5 mcg/actuation mist 2 puff inhalation DAILY 30 Days Qty: 1 6RF sennosides [senna] 8.6 mg tablet 8.6 mg PO DAILY Qty: 30 6RF omeprazole 20 mg capsule,delayed release(DR/EC) 20 mg PO DAILY 30 Days Qty: 30 6RF Flovent HFA 220 mcg/actuation HFA aerosol inhaler 1 puff PO BID Qty: 12 0RF fluticasone propionate 50 mcg/actuation spray,suspension 1 spray intranasal BID Qty: 16 0RF Citrucel 500 mg tablet 500 mg PO BID Qty: 60 5RF ibuprofen 600 mg tablet 600 mg PO Q6H PRN (Reason: pain) Qty: 20 0RF hydrocodone-homatropine 5-1.5 mg/5 mL (5 mL) syrup 5 ml PO Q6H PRN (Reason: cough) Qty: 60 0RF albuterol sulfate 90 mcg/actuation HFA aerosol inhaler 1 inh inhalation ONCE PRN (Reason: shortness of breath or wheezing) polyethylene glycol 3350 [Miralax] 17 gram/dose powder 17 g PO DAILY Qty: 510 6RF ergocalciferol (vitamin D2) [Vitamin D2] 1,250 mcg (50,000 unit) capsule PO cholecalciferol (vitamin D3) 50 mcg (2,000 unit) capsule 50 mcg PO DAILY docusate sodium [Colace] 100 mg capsule 200 mg PO BEDTIME Qty: 60 5RF pyridoxine (vitamin B6) 50 mg capsule 50 mg PO BID atorvastatin 20 mg tablet 20 mg PO DAILY doxycycline monohydrate 100 mg capsule 100 mg PO BID 14 Days Qty: 28 0RF Referrals: Raj Bethea MD [Primary Care Provider] - Interventions: ED Discharge Assessment Last Done: 09/23/21 13:09 Print Language: Latvian
[2021-09-23 12:08] VITALS: BP 128/78; PULSE 88; RESP 18; TEMP 36.8; O2SAT 97
== END 2021-09-23 13:12 | disposition home or self-care (01) ==
PROVIDERS: Emergency Provider Emergency Medicine; PCP Internal Medicine
DX: J44.0 Chronic obstructive pulmonary disease with (acute) lower respiratory infection (principal); J18.9 Pneumonia, unspecified organism; Z20.822 Contact with and (suspected) exposure to COVID-19
CPT/HCPCS: 0241U; 71045; 99283

== ENCOUNTER 2021-09-26 08:00 | Outpatient (REF) | payer OTHER, SELFPAY ==
--- NOTE | ~2021-09-26 | MR_ITS ---
EXAMINATION: MR BREAST WITHOUT AND WITH CONTRAST, BILATERAL CLINICAL INFORMATION: High-risk screening. Family history of breast cancer in both grandmothers. Dense breasts. COMPARISON: Screening mammography 07/11/2021 and subsequent diagnostic imaging. TECHNIQUE: Imaging was performed with a dedicated breast coil. Prior to the administration of contrast, bilateral axial T1 and bilateral axial T2 weighted sequences were obtained. After the uneventful administration of?7.5 mL of Gadavist, dynamic contrast-enhanced VIBRANT series through the breasts in the axial plane were performed. Subtracted images were performed and reviewed. A delayed sagittal sequence through both breasts was acquired. Additionally, CAD post-processing, including maximum intensity projections, 3-D reconstructions and kinetic analysis, were performed an independent workstation and reviewed by the interpreting radiologist is a portion of this exam. FINDINGS: The breasts are comprised of dense parenchyma. The tissue undergoes moderate background enhancement. LEFT BREAST: A 10 mm bilobed enhancing solid mass at 6 o'clock in the deep posterior subareolar left breast (image 57/114). Finding is T2 isointense. Type II plateau enhancement kinetics. Recommend MR directed diagnostic second look ultrasound and biopsy as indicated. RIGHT BREAST: There is an 8 mm oval heterogeneously enhancing right breast mass at 2 o'clock (image 49/114), approximately 3 cm from the nipple. Suspicious type III rapid washout enhancement kinetics. This is a good correlate for recent mammographic finding. Given MR enhancement, stereotactic biopsy is advised. There is no suspicious internal mammary chain or axillary adenopathy. Limited views of the chest and abdomen are unremarkable. MR/MR breast BI wo/w con IMPRESSION: 1. An 8 mm enhancing right breast mass at 2 o'clock with suspicious enhancement kinetics correlates with abnormal mammographic finding. Recommend stereotactic biopsy. 2. A 10 mm bilobed solid enhancing left breast mass at 6 o'clock posteriorly. Biopsy is recommended. ASSESSMENT: LEFT BREAST: BI-RADS 4, suspicious finding. RIGHT BREAST: BI-RADS 4, suspicious finding. RECOMMENDATIONS: 1. Recommend biopsy of left breast mass at 6 o'clock. MR directed diagnostic second look ultrasound followed by ultrasound or MR biopsy as indicated. 2. Recommend stereotactic biopsy of right breast mass in 2 o'clock position.
== END 2021-09-26 08:01 | disposition home or self-care (01) ==
LOC: HO.MRI 08:00
PROVIDERS: Visit Provider Surgery
DX: R92.2 Inconclusive mammogram (principal); Z91.89 Other specified personal risk factors, not elsewhere classified; Z80.3 Family history of malignant neoplasm of breast
CPT/HCPCS: 77049; A9585

== ENCOUNTER → 2021-10-01 13:51 | Outpatient (BNVA) | payer OTHER, SELFPAY | PROVIDERS: PCP Internal Medicine; Visit Provider Surgery | DX: R92.8 Other abnormal and inconclusive findings on diagnostic imaging of breast (principal) | CPT/HCPCS: 99212 ==

== ENCOUNTER → 2021-10-03 10:21 | Outpatient (BNVA) | payer OTHER, SELFPAY | PROVIDERS: PCP Internal Medicine; Visit Provider Physician Assistant | DX: K59.09 Other constipation (principal); K21.9 Gastro-esophageal reflux disease without esophagitis; Z98.890 Other specified postprocedural states | CPT/HCPCS: 99212 ==

== ENCOUNTER 2021-10-07 08:47 | Outpatient (REF) | payer OTHER, SELFPAY ==
--- NOTE | ~2021-10-07 | MM_ITS ---
EXAMINATION: STEREOTACTIC TOMOSYNTHESIS-GUIDED VACUUM-ASSISTED BREAST BIOPSY, RIGHT SPECIMEN RADIOGRAPH, RIGHT POST PROCEDURE DIGITAL MAMMOGRAM, RIGHT CLINICAL INFORMATION: Oval heterogeneously enhancing lesion right breast anterior upper inner quadrant corresponding to recent mammography finding. No ultrasound correlate on prior imaging. Stereotactic sampling is suggested. Patient also has contralateral left breast MR finding which was evaluated today with Second Look diagnostic left breast ultrasound, separate report. COMPARISON: Mammography 07/11/2021, 07/18/2021, ultrasound right breast 07/18/2021, MR bilateral breasts without and with contrast 09/26/2021. TECHNIQUE/PROCEDURE: Informed consent was obtained from the patient after discussion of the benefits, risks, and alternatives to biopsy today. Patient appeared to understand. Gave opportunity for questions. Patient signed consent form. BIOPSY TABLE: Blowtorch Prone Biopsy System. LESION: Oval nodule anterior medial right breast. LOCAL ANESTHESIA: 10 mL carbonated 1% lidocaine; 10 mL 1% lidocaine with epinephrine. DERMATOTOMY: Single skin lyubov dermatotomy performed. NEEDLE: Smeam.comiva 9-gauge vacuum assisted core biopsy device. APPROACH: Craniocaudal. TARGETING: Combination of digital breast tomosynthesis and stereotactic digital mammography used for targeting. CORES: 7 CLIP: [employer] SecurMark T-shaped marker. SPECIMEN RADIOGRAPH: Specimen radiograph is taken in separate room using digital mammography. There are scattered fibroglandular densities within the cores as expected. POST PROCEDURE UNILATERAL DIGITAL MAMMOGRAM: The post biopsy mammogram is performed in separate room using separate digital mammography equipment from the biopsy procedure. CC and ML views are obtained. There are scattered areas of fibroglandular density (breast composition category: b). The clip marker is in position corresponding to the asymmetric density on prior mammography. The density is no longer clearly visualized. No gross hematoma. The patient tolerated the procedure well. No immediate complications. Home instructions reviewed with the patient. Final pathology results are pending. MM/MM stereotactic biopsy RT IMPRESSION: 1. Digital tomosynthesis-guided core biopsy right breast with clip placement. 2. Specimen radiograph taken and post procedure mammogram. There is satisfactory positioning of the biopsy clip. 3. Final pathology results pending. An addendum report will be issued.
--- NOTE | ~2021-10-07 | US_ITS ---
EXAMINATION: US DIAGNOSTIC ULTRASOUND BREAST ( SECOND LOOK ), LEFT CLINICAL INFORMATION: Follow-up high risk screening MRI breasts which show 10 mm bilobed enhancing solid mass posterior central 6:00 left breast with type III washout kinetics. Patient also had MR finding on right and lesion sampled under stereotactic guidance today, separate report. COMPARISON: MRI breasts 09/26/2021, bilateral breast digital tomosynthesis 07/11/2021, 07/02/2020. TECHNIQUE: Ultrasound left breast is targeted to the central posterior breast interrogated from 3:00 through 9:00 position both with patient's arm up and patient's arm down. Grayscale imaging and color Doppler are performed. FINDINGS: There is no definite ultrasound correlate for the finding on recent high risk screening breast MRI. Results are discussed with the patient at time of visit. Any absence of an ultrasound correlate, tissue sampling for the MR finding would require MR guidance without and with contrast. Results called to anesthesiology medical doctor (Miriam) for Dr. Rose on 10/07/2021. US/US breast LT limited IMPRESSION: -No ultrasound correlate for MR finding left breast. ASSESSMENT: -BI-RADS 1: Negative (diagnostic ultrasound) -BI-RADS 4: Suspicious (from recent MR) RECOMMENDATION: -Tissue sampling for recent left breast MR finding would require MR guided biopsy. -Contralateral right stereotactic biopsy performed today, separate report.
[2021-10-07] MEDS: Sodium Bicarbonate 8.4% 50 MEQ/50 ML VIAL SUBCUT (10:45)
[2021-10-07] MEDS: Lidocaine HCl 1 % 20 ML VIAL 9 ML SUBCUT (11:03)
== END 2021-10-07 08:48 | disposition home or self-care (01) ==
LOC: HO.MAMMO 08:47
PROVIDERS: Visit Provider Surgery
DX: R92.8 Other abnormal and inconclusive findings on diagnostic imaging of breast (principal)
CPT/HCPCS: 19081; 76642; 88305; A4648

== ENCOUNTER → 2021-10-10 14:23 | Outpatient (BNVA) | payer OTHER, SELFPAY | PROVIDERS: PCP Internal Medicine; Visit Provider Surgery | DX: Z48.89 Encounter for other specified surgical aftercare (principal) | CPT/HCPCS: 99211 ==

== ENCOUNTER 2021-10-30 11:49 | Emergency (ER) | payer OTHER, SELFPAY ==
--- NOTE | ~2021-10-30 | XR_ITS ---
EXAMINATION: XR CHEST CLINICAL INFORMATION: Cough, COVID positive COMPARISON: Chest x-ray 09/23/2021 TECHNIQUE: 2 views of the chest were obtained. FINDINGS: Lungs are clear. No focal consolidation or mass. Normal pulmonary vascularity. No pleural effusion or pneumothorax. Normal heart size. No acute osseous abnormality. XR/XR chest 2V IMPRESSION: No acute pulmonary disease. No significant change from prior study.
[2021-10-30 13:02] VITALS: BP 104/71; PULSE 89; RESP 18; TEMP 36.6; O2SAT 99; BMI 25.7
--- NOTE | 2021-10-30 15:41 | ED_ITS ---
HPI - URI/Sore Throat General Chief Complaint: Upper Respiratory Symptoms Stated Complaint: Covid+/Headache/Body aches Time Seen by Provider: 10/30/21 15:32 Source: patient Mode of arrival: ambulatory Limitations: no limitations History of Present Illness HPI Narrative: 51-year-old female with history of asthma, GERD, and high cholesterol presents to ED for weakness, nausea, coughing after doing a COVID test at home which showed that she was positive for COVID. Patient's states symptoms started last night. Patient denies any chest pain, shortness of breath, leg swelling, calf pain, coughing up blood, or pleurisy. Patient not vaccinated. Related Data Home Medications Medication Instructions Recorded Confirmed cholecalciferol (vitamin D3) 50 50 mcg PO DAILY 02/29/20 09/06/21 mcg (2,000 unit) capsule pyridoxine (vitamin B6) 50 mg 50 mg PO BID 03/21/20 09/06/21 capsule albuterol sulfate 90 mcg/actuation 1 inh inhalation ONCE PRN 06/20/20 10/01/21 aerosol inhaler shortness of breath or wheezing ergocalciferol (vitamin D2) 1,250 PO 12/20/20 09/06/21 mcg (50,000 unit) capsule (Vitamin D2) atorvastatin 20 mg tablet 20 mg PO DAILY 03/26/21 09/06/21 Previous Rx's Medication Instructions Recorded docusate sodium 100 mg capsule 200 mg PO BEDTIME #60 caps 02/29/20 (Colace) ibuprofen 600 mg tablet 600 mg PO Q6H PRN pain #20 tabs 08/12/20 polyethylene glycol 3350 17 17 g PO DAILY #510 grams 08/20/20 gram/dose oral powder (Miralax) doxycycline monohydrate 100 mg 100 mg PO BID 14 days #28 caps 03/26/21 capsule omeprazole 20 mg capsule,delayed 20 mg PO DAILY 30 days #30 caps 04/30/21 release sennosides 8.6 mg tablet (senna) 8.6 mg PO DAILY #30 tabs 04/30/21 fluticasone propionate 220 1 puff PO BID #12 grams 05/10/21 mcg/actuation HFA aerosol inhaler (Flovent HFA) fluticasone propionate 50 1 spray intranasal BID #16 grams 05/10/21 mcg/actuation nasal spray,suspension methylcellulose (laxative) 500 mg 500 mg PO BID #60 tabs 08/29/21 tablet (Citrucel) prednisone 20 mg tablet 20 mg PO DAILY 12 days #26 tabs 09/23/21 bisacodyl 5 mg tablet,delayed 10 mg PO ONCE colonoscopy prep 1 10/03/21 release (Dulcolax (bisacodyl)) day #2 tabs linaclotide 145 mcg capsule 145 mcg PO DAILY 30 days #30 caps 10/03/21 (Linzess) polyethylene glycol 3350 17 238 g PO ONCE 1 day #238 grams 10/03/21 gram/dose oral powder (Miralax) tiotropium bromide 2.5 2 puff PO DAILY #12 grams 10/07/21 mcg/actuation mist for inhalation (Spiriva Respimat) Allergies Allergy/AdvReac Type Severity Reaction Status Date / Time No Known Allergies Allergy Verified 10/10/21 14:38 Review of Systems Review of Systems: Body aches, cough, general weakness, and nausea Yes all other systems are reviewed and are negative [facility] Past Medical History Medical History Asthma COPD (chronic obstructive pulmonary disease) Hiatal hernia Mitral valve prolapse Surgical History History of appendectomy History of hysterectomy Hx of endoscopy Hx of tonsillectomy Family History Family History Father No problems noted. Mother Family history of diabetes mellitus Multiple myeloma Sister Family history of diabetes mellitus Son Hypertension Maternal Grandmother Breast cancer Paternal Grandmother Breast cancer Social History Social History Household Members: None Alcohol intake: never Advance Directives: No Advance Directives Information Provided: No Current occupational status: employed Current occupation: [employer] Physical Exam Vital Signs: Vital Signs: Last Vital Signs Temp 98 F 10/30/21 13:02 Pulse 89 10/30/21 13:02 Resp 18 10/30/21 13:02 BP 104/71 10/30/21 13:02 Pulse Ox 99 10/30/21 13:02 O2 Del Method 10/30/21 13:02 BMI result Body Mass Index 25.7 Const: General: cooperative, healthy appearing, comfortable, no acute distress, well developed, alert, awake and Physically active Orientation/consciousness: oriented to time and patient oriented x3 HEENT: Head: Yes normal to inspection, Yes No palpable skull fracture present, Yes normocephalic, Yes atraumatic and No abrasion Eyes: General: appearance normal, both eyes and all related structures Neck: Neck: Yes normal visual inspection and Yes full ROM Chest: Chest palpation & inspection: normal inspection of the chest and normal palpation of entire chest wall Resp: Effort & Inspection: normal respiratory effort and able to speak in complete sentences Auscultation: clear to auscultation bilaterally Cardio: Jugular venous distension: no JVD Heart sounds: S1 normal heart sound present and S2 normal heart sound present GI: Inspection: Yes normal to inspection and No abdominal wall ecchymosis Palpation (GI): Soft to palpation, not firm, nontender, no guarding and not rigid : General: No CVA tenderness and Yes no CVA tenderness Back/Spine/Pelvis: Back: no CVA tenderness, No CVA tenderness and No back tenderness Skin: General skin exam: no rashes or lesions noted and elasticity normal Neuro: General: oriented to time, patient oriented x3, gait normal, tone normal and CN's II-XI intact bilaterally Cranial nerves: Yes CN's II-XII intact bilaterally Extrem: General: Yes normal to inspection and Yes full ROM Psych: Appearance: grossly normal, well kempt and not disheveled Course Course Course Narrative: Chest x-ray ordered. No need for repeat COVID test. Patient had positive COVID test at home Reevaluation(s) Reevaluation #1: Chest x-ray negative for COVID pneumonia. Patient educated rest, oral hydration, and self-isolation. Patient educated on respiratory distress and informed to return to the ED if he has symptoms. Patient is also educated on pulmonary embolus and myocarditis. Patient informed to buy of portable pulse ox from pharmacy to monitor oxygen saturation. Time: 16:03 MDM - URI/Sore Throat MDM Narrative Medical decision making narrative: COVID Discharge Plan Discharge Clinical Impression: COVID-19 Patient Disposition: Home, Self-Care Instructions: COVID-19 (Coronavirus Disease 2019) (ED) Additional Instructions: Recomendar reposo, hidrataci?n oral, monitorizar la saturaci?n de ox?linnea con pulsiox?metro port?til de farmacia y continuar con el autoaislamiento. Regrese al servicio de urgencias por cualquier dolor en el pecho, dificultad para respirar, debilidad, tos con tod, dolor en la pantorrilla, hinchaz?n de las piernas, dolor abdominal o cualquier otro s?ntoma preocupante. Por favor, kiran un seguimiento con el proveedor de atenci?n primaria. Prescriptions: No Action sennosides [senna] 8.6 mg tablet 8.6 mg PO DAILY Qty: 30 6RF omeprazole 20 mg capsule,delayed release(DR/EC) 20 mg PO DAILY 30 Days Qty: 30 6RF Flovent HFA 220 mcg/actuation HFA aerosol inhaler 1 puff PO BID Qty: 12 0RF fluticasone propionate 50 mcg/actuation spray,suspension 1 spray intranasal BID Qty: 16 0RF Citrucel 500 mg tablet 500 mg PO BID Qty: 60 5RF Spiriva Respimat 2.5 mcg/actuation mist 2 puff PO DAILY Qty: 12 1RF ibuprofen 600 mg tablet 600 mg PO Q6H PRN (Reason: pain) Qty: 20 0RF prednisone 20 mg tablet 20 mg PO DAILY 12 Days Qty: 26 0RF Rx Instructions: Take 3 tablets for 5 days THEN; Take 2 tablets for 4 days THEN; Take 1 tablet for 3 days albuterol sulfate 90 mcg/actuation HFA aerosol inhaler 1 inh inhalation ONCE PRN (Reason: shortness of breath or wheezing) polyethylene glycol 3350 [Miralax] 17 gram/dose powder 17 g PO DAILY Qty: 510 6RF ergocalciferol (vitamin D2) [Vitamin D2] 1,250 mcg (50,000 unit) capsule PO cholecalciferol (vitamin D3) 50 mcg (2,000 unit) capsule 50 mcg PO DAILY docusate sodium [Colace] 100 mg capsule 200 mg PO BEDTIME Qty: 60 5RF pyridoxine (vitamin B6) 50 mg capsule 50 mg PO BID bisacodyl [Dulcolax (bisacodyl)] 5 mg tablet,delayed release (DR/EC) 10 mg PO ONCE 1 Days Qty: 2 0RF Rx Instructions: Take 2 tablets by mouth at 12:00pm the day before your procedure. polyethylene glycol 3350 [Miralax] 17 gram/dose powder 238 g PO ONCE 1 Days Qty: 238 0RF Rx Instructions: Take as directed by mouth the day before your procedure. Linzess 145 mcg capsule 145 mcg PO DAILY 30 Days Qty: 30 3RF atorvastatin 20 mg tablet 20 mg PO DAILY doxycycline monohydrate 100 mg capsule 100 mg PO BID 14 Days Qty: 28 0RF Stand Alone Forms: Work/School Release Interventions: ED Discharge Assessment Last Done: 10/30/21 15:59 Discharge Date/Time: 10/30/21 16:00 Print Language: Colombian
== END 2021-10-30 16:00 | disposition home or self-care (01) ==
PROVIDERS: Emergency Provider Student in an Organized Health Care Education/Training Program; PCP Internal Medicine
DX: U07.1 COVID-19 (principal); R51.9 Headache, unspecified; M79.10 Myalgia, unspecified site; Z79.899 Other long term (current) drug therapy
CPT/HCPCS: 71046; 99283

== ENCOUNTER 2021-11-07 10:50 | Outpatient (REF) | payer OTHER, SELFPAY ==
[2021-11-07 11:24] LABS: COVID-19 Test Negative (Negative); IDNOW Serial# 08D9AD1C
== END 2021-11-07 10:51 | disposition home or self-care (01) ==
LOC: HO.LAB 10:50
PROVIDERS: Visit Provider Internal Medicine
DX: Z20.822 Contact with and (suspected) exposure to COVID-19 (principal)
CPT/HCPCS: 87635; C9803

== ENCOUNTER 2021-11-13 11:31 | Outpatient (REF) | payer OTHER, SELFPAY ==
[2021-11-13 15:07] LABS: Alanine Aminotransferase 24 U/L (0-31); Aspartate Amino Transferase 18 U/L (5-31); Cholesterol 288 mg/dL; HDL Cholesterol 43 mg/dL; LDL Cholesterol Calculated 217 mg/dl; Triglycerides 143 mg/dL
== END 2021-11-13 11:32 | disposition home or self-care (01) ==
LOC: HO.LAB 11:31
PROVIDERS: PCP Internal Medicine; Visit Provider Internal Medicine
DX: E78.00 Pure hypercholesterolemia, unspecified (principal); J45.40 Moderate persistent asthma, uncomplicated; J32.9 Chronic sinusitis, unspecified
CPT/HCPCS: 36415; 80061; 84450; 84460; 99212

== ENCOUNTER 2021-11-25 07:38 | Outpatient (REF) | payer OTHER, SELFPAY ==
--- NOTE | ~2021-11-25 | MR_ITS ---
EXAMINATION: MR GUIDED VACUUM-ASSISTED CORE BIOPSY BREAST, LEFT MM DIGITAL MAMMOGRAPHY POST BIOPSY, LEFT CLINICAL INFORMATION: Bilobed enhancing nodule posterior central 6:00 left breast, kinetics type II. No ultrasound correlate. COMPARISON: MR bilateral breasts 09/26/2021, mammography 07/11/2021, second left ultrasound left breast 10/07/2021. TECHNIQUE/PROCEDURE: Informed consent was obtained from the patient after discussion of the benefits, risks, and alternatives to biopsy today. Patient appeared to understand. Gave opportunity for questions. Patient signed consent form. Biopsy is performed under MRI guidance using breast surface coil. Imaging is performed without and with use of 8 mL Gadavist gadolinium contrast. [employer] introducer localization system is used with grid. LESION: Faint bilobed enhancing nodule posterior central 6:00 left breast, type II kinetics. LOCAL ANESTHESIA: 8 mL carbonated 2% lidocaine; 10 mL 2% lidocaine with epinephrine. NEEDLE: R17 9-gauge vacuum assisted core biopsy device. APPROACH: Lateral medial. CORES: 7. CLIP: TriMark barbell/spool shaped POSTPROCEDURE UNILATERAL DIGITAL MAMMOGRAM: Mammography is performed using digital mammography in CC and ML views. The breasts are heterogeneously dense, which may obscure small masses (ACR BI-RADS breast composition Category c). The clip marker is in position. No gross hematoma. The patient tolerated the procedure well. No immediate complications. Home instructions reviewed with the patient. Final pathology results are pending. MR/MR guided breast biopsy LT IMPRESSION: 1. Status post MRI guided vacuum-assisted core biopsy left breast with clip placement. 2. Final pathology results pending. An addendum report will be issued.
--- NOTE | ~2021-11-25 | MM_ITS ---
Left mammography for clip placement is described in a single combined report along with the MR guided left breast biopsy under accession number [id number].
[2021-11-25] MEDS: Sodium Bicarbonate 8.4% 50 MEQ/50 ML VIAL SUBCUT (09:15)
[2021-11-25] MEDS: Lidocaine HCl 2 % 20 ML VIAL 5 ML SUBCUT ×2 (09:32→09:34)
== END 2021-11-25 07:39 | disposition home or self-care (01) ==
LOC: HO.MRI 07:38
PROVIDERS: Visit Provider Surgery
DX: R92.8 Other abnormal and inconclusive findings on diagnostic imaging of breast (principal)
CPT/HCPCS: 19085; 77062; 77065; 88305; 88341; 88342; 88360; A4648; A9585

== ENCOUNTER → 2021-11-29 08:34 | Outpatient (BNVA) | payer OTHER, SELFPAY | PROVIDERS: PCP Internal Medicine; Visit Provider Surgery | DX: R92.8 Other abnormal and inconclusive findings on diagnostic imaging of breast (principal); N63.25 Unspecified lump in the left breast, overlapping quadrants; N63.15 Unspecified lump in the right breast, overlapping quadrants; Z79.899 Other long term (current) drug therapy; Z71.2 Person consulting for explanation of examination or test findings | CPT/HCPCS: 99212 ==

== ENCOUNTER 2021-12-06 13:45 | Outpatient (REF) | payer OTHER, SELFPAY ==
[2021-12-06 14:30] LABS: COVID-19 Test Negative (Negative); IDNOW Serial# 16C4AD1C
== END 2021-12-06 13:46 | disposition home or self-care (01) ==
LOC: HO.LAB 13:45
PROVIDERS: Visit Provider Internal Medicine
DX: Z20.822 Contact with and (suspected) exposure to COVID-19 (principal)
CPT/HCPCS: 87635; C9803

== ENCOUNTER → 2021-12-10 10:58 | Outpatient (BNVA) | payer OTHER, SELFPAY | PROVIDERS: PCP Internal Medicine; Visit Provider Internal Medicine Pulmonary Disease | DX: J45.40 Moderate persistent asthma, uncomplicated (principal) | CPT/HCPCS: 99212 ==

== ENCOUNTER 2021-12-11 11:31 | Outpatient (REF) | payer OTHER, SELFPAY ==
--- NOTE | ~2021-12-11 | US_ITS ---
EXAMINATION: US RETROPERITONEAL LIMITED (RENAL ONLY) CLINICAL INFORMATION: Calculus of kidney. COMPARISON: US retroperitoneal limited (renal only) 10/09/2020 and 08/15/2019. CT abdomen and pelvis with contrast 04/30/2017. TECHNIQUE: Real-time imaging of the kidneys. FINDINGS: RIGHT KIDNEY: 12.4 x 4.7 x 5.8 cm (SAG x AP x TRV). The kidney is normal in size, contour, and echogenicity. Renal cortical thickness is normal. No calculi or focal parenchymal lesions. No hydronephrosis. LEFT KIDNEY: 10.1 x 4.5 x 4.8 cm (SAG x AP x TRV). The kidney is normal in size, contour, and echogenicity. Renal cortical thickness is normal. No focal parenchymal lesions or hydronephrosis. Lower pole nonobstructing calculus measures 0.2 cm. US/US renal BI IMPRESSION: 0.2 cm left lower pole renal calculus. No hydronephrosis. On prior, 2 stones are seen at the lower pole. Only one is seen at the current study..
== END 2021-12-11 11:32 | disposition home or self-care (01) ==
LOC: HO.HMGCX 11:31
PROVIDERS: PCP Internal Medicine; Visit Provider Urology
DX: N20.0 Calculus of kidney (principal)
CPT/HCPCS: 76775

== ENCOUNTER 2021-12-30 13:28 | Outpatient (REF) | payer OTHER, SELFPAY ==
[2021-12-30 14:27] LABS: COVID-19 Test Negative (Negative); IDNOW Serial# 9DB6401D
== END 2021-12-30 13:29 | disposition home or self-care (01) ==
LOC: HO.LAB 13:28
PROVIDERS: Visit Provider Internal Medicine
DX: Z20.822 Contact with and (suspected) exposure to COVID-19 (principal)
CPT/HCPCS: 87635; C9803

== ENCOUNTER 2022-01-16 14:46 | Outpatient (REF) | payer OTHER, SELFPAY ==
[2022-01-16 15:28] LABS: COVID-19 Test Negative (Negative); IDNOW Serial# 55D5AD1C
== END 2022-01-16 14:47 | disposition home or self-care (01) ==
LOC: HO.LAB 14:46
PROVIDERS: PCP Internal Medicine; Visit Provider Internal Medicine
DX: Z20.822 Contact with and (suspected) exposure to COVID-19 (principal)
CPT/HCPCS: 87635; C9803

== ENCOUNTER 2022-02-06 09:09 | Day surgery (SDC) | payer OTHER, SELFPAY ==
[2022-02-03 08:42] VITALS: BMI 25.5
--- NOTE | 2022-02-05 13:49 | P.CONAN_ITS ---
Documented by User: Lucy Gaitan NP 02/05/22 13:50 HPI - Anesthesia Eval Consult details Narrative: 51yo F for Colonoscopy PMFSH Active Problems Active Problems: All Active Problems (Updated 02/03/22 @ 08:41 by Saundra Diego RN) History of colonoscopy (Acute) Moderate persistent asthma (Acute) Deviated septum (Acute) Sprain of finger of left hand (Acute) Nephrolithiasis (Acute) GERD (gastroesophageal reflux disease) (Acute) Family history of breast cancer (Acute) Increased risk of breast cancer (Acute) Dense breast tissue on mammogram (Acute) Abnormal mammogram of both breasts (Acute) COVID-19 (Acute) Sinusitis (Acute) High cholesterol (Acute) Chronic constipation (Acute) Past Medical History Medical History (Updated 02/03/22 @ 08:41 by Saundra Diego RN) Asthma Chronic constipation COPD (chronic obstructive pulmonary disease) Hiatal hernia High cholesterol History of COVID-19 Mitral valve prolapse Family History Family History Father No problems noted. 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 Allergies Allergy/AdvReac Type Severity Reaction Status Date / Time No Known Allergies Allergy Verified 12/24/21 10:45 Home Medications Medication Instructions Recorded Confirmed Last Taken Type cholecalciferol (vitamin D3) 50 50 mcg PO DAILY 02/29/20 02/03/22 Unknown History mcg (2,000 unit) capsule pyridoxine (vitamin B6) 50 mg 50 mg PO BID 03/21/20 02/03/22 Unknown History capsule ergocalciferol (vitamin D2) 1,250 50,000 unit PO QWEEK 12/20/20 02/03/22 Unknown History mcg (50,000 unit) capsule (Vitamin D2) atorvastatin 20 mg tablet 20 mg PO DAILY 03/26/21 02/03/22 Unknown History Exam Exam Date and Time: February 05, 2022 1349 Height,Weight and Vital Signs: Height 5 ft 10 in Weight 80.739 kg Assessment and Plan Assessment Anesthesia Assessment: Chart Reviewed Documented by User: Paul Cheng MD 02/06/22 18:05 [facility], [facility] Past Medical History Medical History (Updated 02/03/22 @ 08:41 by Saundra Diego, RN) Asthma Chronic constipation COPD (chronic obstructive pulmonary disease) Hiatal hernia High cholesterol History of COVID-19 Mitral valve prolapse Functional capacity: independent ambulation Family History Family History Father No problems noted. Mother Family history of diabetes mellitus Multiple myeloma Sister Family history of diabetes mellitus Son Hypertension Maternal Grandmother Breast cancer Paternal Grandmother Breast cancer Family history of problems with anesthesia: No Surgical History Surgical History (Updated 02/03/22 @ 08:38 by Saundra Diego, RN) H/O colonoscopy History of appendectomy History of hysterectomy Hx of endoscopy Hx of tonsillectomy History of Problems with Anesthesia: No Social History Social History Household Members: None Alcohol intake: never Patient Tobacco Use Status: Never used Tobacco Second Hand Smoke Exposure: No Current occupational status: employed 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 Allergies Allergy/AdvReac Type Severity Reaction Status Date / Time No Known Allergies Allergy Verified 12/24/21 10:45 Home Medications Medication Instructions Recorded Confirmed Last Taken Type cholecalciferol (vitamin D3) 50 50 mcg PO DAILY 02/29/20 02/03/22 Unknown History mcg (2,000 unit) capsule pyridoxine (vitamin B6) 50 mg 50 mg PO BID 03/21/20 02/03/22 Unknown History capsule ergocalciferol (vitamin D2) 1,250 50,000 unit PO QWEEK 12/20/20 02/03/22 Unknown History mcg (50,000 unit) capsule (Vitamin D2) atorvastatin 20 mg tablet 20 mg PO DAILY 03/26/21 02/03/22 Unknown History Exam Airway Mallampati Class: III TM Dist: >3cm Neck ROM: Full Loose/Missing/Broken Teeth: Yes Heart: S1,S2 Lungs: b/l breath sounds Assessment and Plan Assessment Anesthesia Assessment: Anesthesia Plan Discussed Final Anesthetic Review Family History of Problems with Anesthesia: No History of Problems with Anesthesia: No NPO: Yes ASA Class: II Final Preanesthetic Review: Meds/Allgs Chart Reviewed and Consent Obta ined/Reviewed Patient Risk: Intermediate Procedure Risk: Intermediate Anesthetic Plan Anesthetic Plan: MAC: Disposition: Standard PACU
[2022-02-06 09:44] VITALS: BP 120/71; PULSE 78; RESP 16; TEMP 36.3; O2SAT 99
[2022-02-06] MEDS: Lactated Ringers 1,000 ML 100 ML IVCONT (09:49)
--- NOTE | 2022-02-06 10:04 | P.HPSUR_ITS ---
Pre-Procedural Eval Section A Date of Service: 02/06/22 Section B Chief Complaint: postprocedural states,constipation, Relevant Family History (Specify if Yes): No Relevant Social History: None Present Medications: see Short Stay Collaborative assessment Medical History: Significant History (Asthma Chronic constipation COPD (chronic obstructive pulmonary disease) Hiatal hernia High cholesterol History of COVID- 19 Mitral valve prolapse) History of Previous Operations: Relevant previous surgery/procedure and date(s) (H/O colonoscopy History of appendectomy History of hysterectomy Hx of endoscopy Hx of tonsillectomy) Allergies: Allergies Allergy/AdvReac Type Severity Reaction Status Date / Time No Known Allergies Allergy Verified 12/24/21 10:45 Review of Systems Sugical H&P ROS: Negative: Constitution, Cardiovascular, Respiratory, Neurological, Psychiatric, Hem-Onc, Allergic/Immunologic, Gastrointestinal, Genitourinary, Musculoskeletal, Integumentary, Endocrine and Eyes/Ears/Nose/Throat Exam Surgical H&P Exam: Normal: HEENT, Normal: Heart, Normal: Lungs, Normal: Extremities, Normal: Abdomen, Normal: Skin and Normal: Neurological Plan Diagnosis/Plan: Unchanged I have reviewed the history and physical and performed a pertinent physical examination on my patient. No changes have occurred unless specified.
--- NOTE | 2022-02-06 10:44 | W.PM.OPN ---
Operative Note Operative Note Date of Service: 02/06/22 Narrative: Operative Information Procedure Description: Colonoscopy Indication: screening Anesthesia: MAC COLONOSCOPY Instrument: Olympus variable stiffness pediatric scope 190L Colonoscopy Monitoring: Vital signs and clinical assessment, continuous EKG monitoring, Pulse oximetry, Carbon Dioxide monitoring and blood pressure monitoring were done throughout the procedure. Colon withdrawal time was 8 minutes. Procedure: The patient was placed in the left lateral decubitis position and pre-procedure medications were administered. After a digital rectal examination of the ano-rectum, the video colonoscope was inserted into the rectum and advanced through the colon to the cecum/TI. The colonoscope was slowly withdrawn in a retrograde panoramic fashion and the colon mucosa was carefully examined including a retroflexed view of the rectum. Findings and interventions are described below. Procedure Difficulty: easy Findings: Terminal Ileum-normal Cecum:normal Ascending Colon: normal Transverse Colon -normal Descending Colon:normal Sigmoid Colon: normal Rectum: Retroflexion with small internal hemorrhoids, grade I Anorectum - normal Colon preparation: [place] Bowel Preparation Scale Right colon; 2 Transverse colon: 2 Left colon; 2 (0 = Unprepared colon segment with mucosa not seen due to solid stool that cannot be cleared. 1 = Portion of mucosa of the colon segment seen, but other areas of the colon segment not well seen due to staining, residual stool and/or opaque liquid. 2 = Minor amount of residual staining, small fragments of stool and/or opaque liquid, but mucosa of colon segment seen well. 3 = Entire mucosa of colon segment seen well with no residual staining, small fragments of stool or opaque liquid) Impression and Post Procedure Diagnosis: internal hemorrhoids Plan: High fiber diet leaflet Avoid straining at stool, epsom salts and sitz bath, anusol supps or cream Repeat Colonoscopy in 10 years or earlier if clinically indicated Above findings were reviewed with the patient and relevant handouts were provided if indicated.
[2022-02-06 11:41] VITALS: BP 89/52; PULSE 71; RESP 15; TEMP 36.4; O2SAT 100
[2022-02-06 11:56] VITALS: BP 92/58; PULSE 89; RESP 18; TEMP 36.4; O2SAT 100
== END 2022-02-06 12:56 | disposition home or self-care (01) ==
PROVIDERS: PCP Internal Medicine; Visit Provider Internal Medicine Gastroenterology
PROC: 0DJD8ZZ Inspection of Lower Intestinal Tract, Via Natural or Artificial Opening Endoscopic (ICD-10-PCS; CPT 45378; principal; 2022-02-06 10:40)
DX: K59.04 Chronic idiopathic constipation (principal); Z98.890 Other specified postprocedural states; K64.0 First degree hemorrhoids; K21.9 Gastro-esophageal reflux disease without esophagitis; K44.9 Diaphragmatic hernia without obstruction or gangrene; J44.9 Chronic obstructive pulmonary disease, unspecified; E78.00 Pure hypercholesterolemia, unspecified; I34.1 Nonrheumatic mitral (valve) prolapse; Z79.51 Long term (current) use of inhaled steroids; Z79.899 Other long term (current) drug therapy; Z86.16 Personal history of COVID-19
CPT/HCPCS: 45378

== ENCOUNTER 2022-02-26 13:42 | Outpatient (REF) | payer OTHER, SELFPAY ==
--- NOTE | ~2022-02-26 | MM_ITS ---
EXAMINATION: MM DIAGNOSTIC DIGITAL BREAST TOMOSYNTHESIS, RIGHT CLINICAL INFORMATION: Short interval six-month follow-up benign right breast stereotactic biopsy of an asymmetric density (benign breast tissue with apocrine metaplasia and prominent adipose tissue; no atypia or malignancy identified). COMPARISON: Mammography: 11/25/2021, 10/07/2021, 07/18/2021, 07/11/2021, 07/02/2020, MR breast 09/26/2021, ultrasound right breast 07/18/2021. TECHNIQUE: Digital breast tomosynthesis is performed in both the craniocaudal and mediolateral oblique views along with computer-aided detection (CAD). Synthesized 2D images are generated from the tomosynthesis. FINDINGS: There are scattered areas of fibroglandular density (ACR BI-RADS breast composition Category b). Breast tissue composition borders on heterogeneously dense. The asymmetric density immediately anterior to the clip marker is decreased in size from pre biopsy mammography. There is no developing density or architectural abnormality. No abnormal calcifications. Skin contours are smooth. No coarsening of the Harvey's ligaments. The axilla is unremarkable. Results are provided to the patient at time of visit by the technologist. MM/MM tomosynthesis diagnostic RT IMPRESSION: -Asymmetric density medial right breast decreased in size since prebiopsy mammography. -No suspicious changes right breast. ASSESSMENT: BI-RADS 2: Benign RECOMMENDATION: Routine annual mammography screening. This patient's information was entered into a reminder system with a target due date for their next mammogram.
== END 2022-02-26 13:43 | disposition home or self-care (01) ==
LOC: HO.MAMMO 13:42
PROVIDERS: Visit Provider Surgery
DX: R92.8 Other abnormal and inconclusive findings on diagnostic imaging of breast (principal)
CPT/HCPCS: 77061; 77065